=== PATIENT | female | born 1985 | race Caucasian/White ===

== ENCOUNTER → 2017-09-02 14:09 | Outpatient (CLI) | payer OTHER, SELFPAY ==
[2017-09-02 17:37] LABS: Absolute Neutrophil Count 6.8 X10^3/uL (2.0-7.7); Basophil# 0.01 X10^3/uL; Basophil% 0.1 % (0-1); Eosinophil# 0.05 X10^3/uL; Eosinophils% 0.6 % (0-5); Hematocrit 36.7 % (37-47); Hemoglobin 12.6 g/dl (12.0-15.0); Lymphocyte % 15.8 % (19-41); Mean Corp Hgb Conc 34.3 g/gl (32-36); Mean Corpuscular Hgb 31.4 pg (27.0-32.0); Mean Corpuscular Volume 91.5 fL (81-99); Mean Platelet Vol. 13.7 fl (6.2-12.0); Monocyte% 6.8 % (0-10); Neutrophil # 6.77 X10^3/uL (2.7-7.7); Neutrophil % 76.5 % (47-70); Platelet Count 165 K/mm3 (150-450); RBC Distribution Width CV 12.2 % (11.6-14.6); RBC Distribution Width SD 40.1 fl (35.1-43.9); Red Blood Count 4.01 M/mm3 (4.2-5.4); White Blood Count 8.9 K/mm3 (4.4-11.0)
[2017-09-02 18:24] LABS: POSITIVE COUNT NO; POSITIVE DIFFERENTIAL NO; POSITIVE MORPHOLOGY NO
[2017-09-03 01:13] LABS: Rapid Plasmin Reagin (RPR) NONREACTIVE (NONREACTIVE)
[2017-09-03 10:38] LABS: HIV - WCH Non-Reactive (Nonreactive); Rubella IgG 163.9 IU/mL
[2017-09-04 11:45] LABS: HEPATITIS B SURFACE AG Negative (Negative)
== END ==
PROVIDERS: Nurse Practitioner Women's Health; Visit Provider Family Medicine Geriatric Medicine
DX: Z34.80 Encounter for supervision of other normal pregnancy, unspecified trimester (principal)
CPT/HCPCS: 85025; 86592; 86703; 86762; 86850; 86900; 87340

== ENCOUNTER → 2017-09-02 18:03 | Outpatient (CLI) | payer OTHER, SELFPAY ==
[2017-09-02 21:13] LABS: Chlamydia Trachomatis by PCR Negative (Negative); Neisserai gonorrhoeae by PCR Negative (Negative); Probe Check PASS; Sample Adequacy Control PASS; Specimen Processing Control PASS
== END ==
PROVIDERS: Visit Provider Nurse Practitioner Women's Health
DX: Z34.80 Encounter for supervision of other normal pregnancy, unspecified trimester (principal)
CPT/HCPCS: 87086; 87491; 87591

== ENCOUNTER → 2017-11-08 13:01 | Outpatient (CLI) | payer OTHER, SELFPAY ==
--- NOTE | 2017-11-08 13:03 | US_ITS ---
STUDY: SECOND AND THIRD TRIMESTER OBSTETRICAL ULTRASOUND REASON FOR EXAM: Female, 31 years old. Routine survey. LMP: June 28, 2017. TECHNIQUE: Transabdominal PRIOR ULTRASOUND: None. FINDINGS: There is a single intrauterine fetus. The fetus is in a breech presentation. There is demonstrated cardiac activity with a heart rate of 160 bpm. There is a normal amniotic fluid volume. The largest amniotic fluid pocket measures 4.9 cm x 4.0 cm. The amniotic fluid index (COCO) is within normal limits. The placenta is posterior in location and is not low lying. There are Grade 0 placental changes. The cervix measures 3.8 cm in length. The bilateral adnexal regions are normal. BIOMETRY: BPD: 4.21 cm: 18 weeks, 6 days HC: 16.45 cm: 19 weeks, 2 days AC: 14.27 cm: 19 weeks, 5 days FL: 2.91 cm: 19 weeks, 0 days CI: 72% FL/BPD: 69% FL/HC: FL/AC: 20% HC/AC: 1.15 age by current US: 19 weeks, 2 days. MAE by current US: April 02, 2018. Estimated weight: 284 grams, +/- 41 grams, 62 %. Age by LMP: 19 weeks, 0 days. MAE by LMP: April 04, 2018. ANATOMY: Gender: Female Cranium: Normal lateral ventricles. Normal choroid plexus. Normal cerebellum. Normal cisterna magna. Normal face, nose and lips. Chest: Normal 4-chamber heart. Abdomen/Pelvis: Normal diaphragm. Normal stomach. Normal abdominal wall. Normal cord insertion. Normal 3 vessel cord. Normal kidneys. Normal bladder. Spine: Normal cervical spine. Normal thoracic spine. Normal lumbar spine. Normal sacrum. Extremities: Normal bilateral upper extremities. Normal bilateral lower extremities. US/OB Anatomy Scan IMPRESSION: Single live intrauterine gestation with a mean gestational age of 19 weeks and 2 days. Electronically Signed: Mychal Medley MD at 15:43 EDT Tel [phone], Service support ,
== END ==
PROVIDERS: Visit Provider Nurse Practitioner Women's Health
DX: Z34.90 Encounter for supervision of normal pregnancy, unspecified, unspecified trimester (principal)
CPT/HCPCS: 76805

== ENCOUNTER → 2017-11-26 16:46 | Outpatient (CLI) | payer OTHER, SELFPAY | PROVIDERS: Visit Provider Nurse Practitioner Women's Health | DX: R30.0 Dysuria (principal) | CPT/HCPCS: 87086; 87088 ==

== ENCOUNTER → 2017-12-22 09:15 | Outpatient (CLI) | payer OTHER, SELFPAY | PROVIDERS: Visit Provider Obstetrics & Gynecology | DX: O23.40 Unspecified infection of urinary tract in pregnancy, unspecified trimester (principal); Z3A.00 Weeks of gestation of pregnancy not specified ==

== ENCOUNTER → 2017-12-22 16:06 | Outpatient (CLI) | payer SELFPAY | PROVIDERS: Visit Provider Obstetrics & Gynecology | DX: O23.40 Unspecified infection of urinary tract in pregnancy, unspecified trimester (principal); Z3A.00 Weeks of gestation of pregnancy not specified | CPT/HCPCS: 87086 ==

== ENCOUNTER → 2018-01-12 11:54 | Outpatient (CLI) | payer OTHER, SELFPAY ==
[2018-01-12 13:43] LABS: Absolute Lymphocyte Count 1.41 X10^3/ul (0.83-4.51); Absolute Neutrophil Count 8.2 X10^3/uL (2.0-7.7); Basophil# 0.01 X10^3/uL; Basophil% 0.1 % (0-1); Eosinophil# 0.09 X10^3/uL; Eosinophils% 0.9 % (0-5); Hematocrit 33.4 % (37-47); Hemoglobin 11.1 g/dl (12.0-15.0); Lymphocyte # 1.41 X10^3/ul (4.0); Lymphocyte % 13.4 % (19-41); Mean Corp Hgb Conc 33.2 g/gl (32-36); Mean Corpuscular Hgb 31.1 pg (27.0-32.0); Mean Corpuscular Volume 93.6 fL (81-99); Mean Platelet Vol. 13.8 fl (6.2-12.0); Monocyte# 0.74 X10^3/uL; Neutrophil # 8.22 X10^3/uL (2.7-7.7); Neutrophil % 78.3 % (47-70); Platelet Count 119 K/mm3 (150-450); RBC Distribution Width CV 12.5 % (11.6-14.6); RBC Distribution Width SD 41.6 fl (35.1-43.9); Red Blood Count 3.57 M/mm3 (4.2-5.4); White Blood Count 10.5 K/mm3 (4.4-11.0)
[2018-01-12 13:53] LABS: POSITIVE COUNT NO; POSITIVE DIFFERENTIAL NO; POSITIVE MORPHOLOGY NO
[2018-01-12 14:12] LABS: Glucose Challenge Gest 1H 50g 108 mg/dL (70-140)
== END ==
PROVIDERS: Nurse Practitioner Women's Health; Visit Provider Obstetrics & Gynecology
DX: Z34.90 Encounter for supervision of normal pregnancy, unspecified, unspecified trimester (principal)
CPT/HCPCS: 36415; 82950; 85025

== ENCOUNTER → 2018-02-09 13:34 | Outpatient (CLI) | payer OTHER, SELFPAY | PROVIDERS: Referring Provider Obstetrics & Gynecology; Visit Provider Obstetrics & Gynecology | DX: N76.0 Acute vaginitis (principal) | CPT/HCPCS: 87070; 87086; 87205 ==

== ENCOUNTER → 2018-03-09 17:11 | Outpatient (CLI) | payer OTHER, SELFPAY ==
[2018-03-09 08:47] VITALS: BMI 29.7
== END ==
PROVIDERS: Referring Provider Nurse Practitioner Women's Health; Visit Provider Nurse Practitioner Women's Health
DX: Z34.90 Encounter for supervision of normal pregnancy, unspecified, unspecified trimester (principal)
CPT/HCPCS: 87081

== ENCOUNTER 2018-04-06 07:10 | Inpatient (IN) | payer OTHER, SELFPAY ==
[2018-04-04 11:16] VITALS: BMI 33.1
[2018-04-06 07:35] VITALS: BMI 29.6
[2018-04-06] MEDS: Lactated Ringers 1,000 ML 50 ML IV ×2 (07:40→14:01)
[2018-04-06] MEDS: Oxytocin 30 units/NS 500 ml 30 UNITS/500 ML IV.SOLN IV (08:00)
[2018-04-06 08:07] LABS: Hemoglobin 10.3 g/dl (12.0-15.0); Mean Corp Hgb Conc 31.2 g/gl (32-36); Mean Corpuscular Hgb 25.3 pg (27.0-32.0); Mean Corpuscular Volume 81.1 fL (81-99); Platelet Count 126 K/mm3 (150-450); RBC Distribution Width CV 15.2 % (11.6-14.6); RBC Distribution Width SD 44.7 fl (35.1-43.9); Red Blood Count 4.07 M/mm3 (4.2-5.4); White Blood Count 9.6 K/mm3 (4.4-11.0)
[2018-04-06 08:09] LABS: Scan Indicated on CBC? Y/N YES- FLAGS NOTED
[2018-04-06] MEDS: 0.9% Normal Saline 100 ML IV.SOLN. INTRA-UTER (09:30)
[2018-04-06] MEDS: fentaNYL-bupivacaine (epidural) 100 ML BAG EPIDURAL (13:30)
[2018-04-06] MEDS: Mag Hydrox/Al Hydrox/Simeth 30 ML UDC PO (13:57)
[2018-04-06] MEDS: Oxytocin 30 units/NS 500 ml 30 UNITS/500 ML IV.SOLN 334 UNITS IV (17:50)
--- NOTE | 2018-04-06 18:04 | PCM.HP.OB ---
- Problem List (1) Post-dates Status: Acute (2) Status: Chronic Qualifiers: Comment: genetic and NTD screening declined. anatomy scan normal. (3) UTI in , antepartum Status: Acute Comment: 11/26/17 Rx macrobid. 12/22/17 repeat culture negative (4) Supervision of normal Status: Acute Qualifiers: Comment: PRR MAE 04/04/18 girl PC chelsie, celia arie History Date of Admission: 04/06/18 Final MAE: 04/04/18 Gestational age: 40 Weeks and 2 Days History of this : This is a 32 year-old, , at 40 weeks gestational age presents for IOL postdates. she has had an uncomplicated Medical History: Medical History (Last Reviewed 04/04/18 @ 11:16 by Sadaf Wasserman) Anxiety F41.9 Surgical History: Surgical History (Last Reviewed 03/29/18 @ 08:44 by Sadaf Wasserman) H/O: knee surgery Z98.890 Allergies gluten Allergy (Verified 04/06/18 08:24) Diarrhea Home Medications: Home Medications vitamin,calcium,vkdaarxe-dgxx-wynok acid tablet 1 tab PO QDAY 09/02/17 Ranitidine HCl [Acid Control] 150 mg PO BID 04/06/18 Smoking Status: Never smoker Alcohol: None Number of Fetus(es): 1 Heart Tracin moderate variability reactive no decels cat I tracing TOCO Analysis: irregular History Past Pregnancies: Past Pregnancies Pregancy History 2 Elective abortions Hx Para 2 Spontaneous abortions Hx # Term Pregnancies Ectopic pregnancies Hx # Pregnancies Multiple births # of living children Past Pregnancies Del. Date Name GA/Weeks Outcome Route Bth Weight Gen Labor Lgth Anesthesia Del Locatn Provider FOB Unknown 2009 Chelsie live - full term Female epidural Fred Unknown 2011 [place] live - full term Female epidural Shayy Labs: Mom's Labs & Results 04/06/18 04/06/18 07:40 07:40 WBC 9.6 RBC 4.07 L Hgb 10.3 L Hct 33.0 L MCV 81.1 MCH 25.3 L MCHC 31.2 L RDW 15.2 H RDW Differential 44.7 H Plt Count 126 L Differential Comment COMMENT Blood Type O POSITIVE Antibody Screen NEGATIVE Course Did the patient receive Yes care? Labs Blood Type: O RH: POSITIVE RPR/VDRL/Syphilis Nonreactive Rubella status Immune HbSAg Negative Date Done: 09/02/17 Chlamydia Negative Gonorrhea Negative HIV/AIDS Non-Reactive Group B Strep: Negative Current Obstetrical History Gestational Diabetes No Incompetent Cervix No Infertility No IUGR No Macrosomia No Hypertension/Pre-eclampsia No Placenta Previa/Abruption No PTL/PROM No Uterine anomaly No Oligohydramnios No Polyhydramnios No Multiple gestation No Past Medical History Asthma Yes: seasonal, no meds Diabetes No Hypertension No Heart disease No Mitral valve prolapse No Neurologic/Seizure disorder/ No Migraines Kidney disease No Liver disease No Varicosities No Clotting disorders/Hx of DVT No Thyroid Dysfunction No Other medical diseases No Psychiatric disorders No Major trauma No Abnormal PAP smear No Sleep apnea No Mammogram in the last 2 years No Social History Marital Status: Alleged father Arie Be Hx Smoking No Smoking Status Never smoker Expected Delivery Method: Spontaneous Vaginal Describe any other labor & delivery plans:: OB Visit. MAE Calculator. Estimated Delivery Date 04/04/18. Based on LMP (certain) 06/28/17. Current WG 40w 0d. Number 1. Expected Delivery Route/Plan. . Specific Issue/Plans. flu vaccine: declines. tdap vaccine: given. rhogam: NA. LARC form signed: declines. labor support person: Arie. pain management: epidural. cut cord/dad catch: yes. : yes. PP control planned: vas planned. special requests: [] Review of Systems Constitutional: Denies: Fever, Malaise Eyes: Denies: Blurred vision, Vision Change HEENT: Denies: Head Aches, Visual Changes Cardiovascular: Denies: Chest Pain, Palpitations Respiratory: Denies: Cough, Shortness of Breath, Wheezing Gastrointestinal: Denies: Abdominal Pain, Diarrhea, Nausea, Vomiting Genitourinary: Denies: Dysuria, Hematuria Musculoskeletal: Denies: Joint Pain, Muscle pain Skin: Denies: Lesions, Rash Neurological: Denies: Blurred vision, Focal weakness, Headaches Psychiatric: Denies: Anxiety, Depression Endocrine: Denies: Heat/ Cold Intolerance Hematologic/ Lymphatic: Denies: Easy Bruising, Easy Bleeding Physical Exam General: Alert, Cooperative, No apparent distress HEENT: Atraumatic, Normocephalic. Negative for: Thyromegaly, Lymphadenopathy Cardiovascular: Regular rate Lungs: Normal air movement Abdomen: Soft, Non Tender, Gravid Neurological: Deep Tendon Reflexes 2+/4 and Symmetrical, Neuro grossly intact. Negative for: Clonus FISCAL SERVICES MANAGER: Normal external genitalia. Negative for: Vulvar lesions Estimated gestational size: Appropriate for gestational size Presentation: Cephalic Assessment/Plan All Active Problems (Last Reviewed 04/04/18 @ 11:16 by Sadaf Wasserman) Post-dates (Acute) UTI in , antepartum (Acute) Supervision of normal (Acute) This is a 32 year-old, at 40 weeks gestational age presents for IOL postdates Patient presents IOL, plan expectant management for , pitocin/AROM PRN after leigh bulb Pain management:plans epidural GBS neg Management of any complications: none I have reviewed the [facility] and made any clinically relevant updates.
--- NOTE | 2018-04-06 18:07 | HP.PCM_ITS ---
- Problem List (1) Post-dates Status: Acute (2) Status: Chronic Qualifiers: Comment: genetic and NTD screening declined. anatomy scan normal. (3) UTI in , antepartum Status: Acute Comment: 11/26/17 Rx macrobid. 12/22/17 repeat culture negative (4) Supervision of normal Status: Acute Qualifiers: Comment: PRR MAE 04/04/18 girl PC chelsie, celia arie History Date of Admission: 04/06/18 Final MAE: 04/04/18 Gestational age: 40 Weeks and 2 Days History of this : This is a 32 year-old, , at 40 weeks gestational age presents for IOL post dates. she has had an uncomplicated Medical History: Medical History (Last Reviewed 04/04/18 @ 11:16 by Sadaf Wasserman) Anxiety F41.9 Surgical History: Surgical History (Last Reviewed 03/29/18 @ 08:44 by Sadaf Wasserman) H/O: knee surgery Z98.890 Allergies gluten Allergy (Verified 04/06/18 08:24) Diarrhea Home Medications: Home Medications vitamin,calcium,vzzsdbkp-ifrl-txovy acid tablet 1 tab PO QDAY 09/02/17 Ranitidine HCl [Acid Control] 150 mg PO BID 04/06/18 Smoking Status: Never smoker Alcohol: None Number of Fetus(es): 1 Heart Tracin moderate variability reactive no decels cat I tracing TOCO Analysis: irregular History Past Pregnancies: Past Pregnancies Pregancy History 2 Elective abortions Hx Para 2 Spontaneous abortions Hx # Term Pregnancies Ectopic pregnancies Hx # Pregnancies Multiple births # of living children Past Pregnancies Del. Date Name GA/Weeks Outcome Route Bth Weight Gen Labor Lgth Anesthesia Del Locatn Provider FOB Unknown 2009 [place] live - full term Female epidural Fred Unknown 2011 [place] live - full term Female epidural Shayy Labs: Mom's Labs & Results 04/06/18 04/06/18 07:40 07:40 WBC 9.6 RBC 4.07 L Hgb 10.3 L Hct 33.0 L MCV 81.1 MCH 25.3 L MCHC 31.2 L RDW 15.2 H RDW Differential 44.7 H Plt Count 126 L Differential Comment COMMENT Blood Type O POSITIVE Antibody Screen NEGATIVE Course Did the patient receive Yes care? Labs Blood Type: O RH: POSITIVE RPR/VDRL/Syphilis Nonreactive Rubella status Immune HbSAg Negative Date Done: 09/02/17 Chlamydia Negative Gonorrhea Negative HIV/AIDS Non-Reactive Group B Strep: Negative Current Obstetrical History Gestational Diabetes No Incompetent Cervix No Infertility No IUGR No Macrosomia No Hypertension/Pre-eclampsia No Placenta Previa/Abruption No PTL/PROM No Uterine anomaly No Oligohydramnios No Polyhydramnios No Multiple gestation No Past Medical History Asthma Yes: seasonal, no meds Diabetes No Hypertension No Heart disease No Mitral valve prolapse No Neurologic/Seizure disorder/ No Migraines Kidney disease No Liver disease No Varicosities No Clotting disorders/Hx of DVT No Thyroid Dysfunction No Other medical diseases No Psychiatric disorders No Major trauma No Abnormal PAP smear No Sleep apnea No Mammogram in the last 2 years No Social History Marital Status: Alleged father Arie Be Hx Smoking No Smoking Status Never smoker Expected Delivery Method: Spontaneous Vaginal Describe any other labor & delivery plans:: OB Visit. MAE Calculator. Estimated Delivery Date 04/04/18. Based on LMP (certain) 06/28/17. Current WG 40w 0d. Number 1. Expected Delivery Route/Plan. . Specific Issue/Plans. flu vaccine: declines. tdap vaccine: given. rhogam: NA. LARC form signed: declines. labor support person: Arie. pain management: epidural. cut cord/dad catch: yes. : yes. PP control planned: vas planned. special requests: [] Review of Systems Constitutional: Denies: Fever, Malaise Eyes: Denies: Blurred vision, Vision Change HEENT: Denies: Head Aches, Visual Changes Cardiovascular: Denies: Chest Pain, Palpitations Respiratory: Denies: Cough, Shortness of Breath, Wheezing Gastrointestinal: Denies: Abdominal Pain, Diarrhea, Nausea, Vomiting Genitourinary: Denies: Dysuria, Hematuria Musculoskeletal: Denies: Joint Pain, Muscle pain Skin: Denies: Lesions, Rash Neurological: Denies: Blurred vision, Focal weakness, Headaches Psychiatric: Denies: Anxiety, Depression Endocrine: Denies: Heat/ Cold Intolerance Hematologic/ Lymphatic: Denies: Easy Bruising, Easy Bleeding Physical Exam General: Alert, Cooperative, No apparent distress HEENT: Atraumatic, Normocephalic. Negative for: Thyromegaly, Lymphadenopathy Cardiovascular: Regular rate Lungs: Normal air movement Abdomen: Soft, Non Tender, Gravid Neurological: Deep Tendon Reflexes 2+/4 and Symmetrical, Neuro grossly intact. Negative for: Clonus HEATING ELEMENT BUILDER: Normal external genitalia. Negative for: Vulvar lesions Estimated gestational size: Appropriate for gestational size Presentation: Cephalic Assessment/Plan All Active Problems (Last Reviewed 04/04/18 @ 11:16 by Sadaf Wasserman) Post-dates (Acute) UTI in , antepartum (Acute) Supervision of normal (Acute) This is a 32 year-old, at 40 weeks gestational age presents for IOL p ostdates Patient presents IOL, plan expectant management for , pitocin/AROM PRN after leigh bulb Pain management:plans epidural GBS neg Management of any complications: none I have reviewed the [facility] and made any clinically relevant updates.
--- NOTE | 2018-04-06 18:09 | OP.PCM_ITS ---
- Problem List (1) Post-dates Status: Acute (2) Status: Chronic Qualifiers: Comment: genetic and NTD screening declined. anatomy scan normal. (3) UTI in , antepartum Status: Acute Comment: 11/26/17 Rx macrobid. 12/22/17 repeat culture negative (4) Supervision of normal Status: Acute Qualifiers: Comment: PRR MAE 04/04/18 girl PC celia kang reinier Vaginal Delivery Maternal Presentation: Medically Indicated Induction iol postdates Method of Induction: Pitocin, [place] [facility] Medical Reason for Induction: Post term Amniotic Membrane Rupture Type: Artificial Amniotic Fluid Description: Clear Final MAE: 04/04/18 Gestational age: 40 Weeks and 2 Days Date of Procedure: 04/06/18 Pre-Operative Diagnosis: Induction of labor postdates Post-Operative Diagnosis: Same Surgery/ Procedure Performed: Spontaneous Vaginal Delivery Type of Anesthesia: Epidural Description of Procedure: Patient began pushing and delivered the head in the ana laura presentation. The head was delivered atraumatically . The anterior and posterior shoulders delivered without complication followed by the rest of the infant and the was p laced on the maternal abdomen. Delayed cord clamping was employed for approximately 60 seconds. Cord was clamped and cut and gentle traction was applied to the cord and the placenta delivered spontaneously immediately following it was noted to be intact with three-vessel cord. The perineum and vagina were inspected and noted to have no laceration. EBL was 100 cc. Patient and tolerated delivery well. Presentation: ANA LAURA Placental Delivery Description: Spontaneous Placenta Disposition: [facility] Cord Vessel Description: 3 Vessels Cord Entanglement: None Estimated Blood Loss: 100 Infant A gender: Female Episiotomy Description: None Laceration: None Medications given after delivery: IV Pitocin Complications: None
--- NOTE | 2018-04-06 18:10 | DCINST_ITS ---
Discharge Diet: No Restrictions Discharge Activity: Return to Normal Activity, May not drive while taking narcotic pain medications., May Shower May resume sexual activity in: 4-6 weeks Call your doctor if your incision/area has: Continuous Slow Oozing, Sudden Increased Bleeding, Increased Pain/ Swelling, Increased Redness, Foul Smelling Discharge Additional Instructions: If you experience any of the following, contact your healthcare provider. * Bleeding that soaks a pad every hour for 2 hours * Fever 100.4 or higher * Unrelieved incision or abdominal pain * Swelling, redness, discharge or bleeding from your incision or episiotomy site * Your incision begins to separate * Problems urinating (including inability to urinate or burning while urinating). * Visual changes * Severe headache * Flu-like symptoms * Pain or redness in one of both of your breasts * Pain, warmth, tenderness or swelling in your legs, especially the calf area * Frequent nausea and vomiting * Symptoms of depression or anxiety If you experience any of the following, call 911 or go to the nearest Emergency Room. * Chest pain * Problems breathing * Seizure activity * Partial or complete paralysis of a body part, slurred speech, weakness or drooping of the face, or a sudden inability to walk or hold your balance Allergies/Adverse Reactions: Allergies gluten Allergy (Verified 04/06/18 08:24) Diarrhea Medications to take at Discharge vitamin,calcium,imyodtks-aauo-isffa acid tablet 1 tab PO QDAY 09/02/17 Ranitidine HCl [Acid Control] 150 mg PO BID 04/06/18 Please Follow Up With: Melissa Bertrand MD - [phone] When: Call to make an appointment with your doctor in 6 weeks. If you had khoi vated Blood pressure or 4th degree laceration you will need to be seen in 2 weeks. Primary Care Physician: Care Physician,No Primary [Primary Care Provider] - Test Results: Test results from this visit will be discussed in further detail at your follow- up appointment, if applicable.
--- NOTE | 2018-04-06 18:10 | PCM.DCVAG ---
Discharge Diet: No Restrictions Discharge Activity: Return to Normal Activity, May not drive while taking narcotic pain medications., May Shower May resume sexual activity in: 4-6 weeks Call your doctor if your incision/area has: Continuous Slow Oozing, Sudden Increased Bleeding, Increased Pain/ Swelling, Increased Redness, Foul Smelling Discharge Additional Instructions: If you experience any of the following, contact your healthcare provider. Bleeding that soaks a pad every hour for 2 hours Fever 100.4 or higher Unrelieved incision or abdominal pain Swelling, redness, discharge or bleeding from your incision or episiotomy site Your incision begins to separate Problems urinating (including inability to urinate or burning while urinating). Visual changes Severe headache Flu-like symptoms Pain or redness in one of both of your breasts Pain, warmth, tenderness or swelling in your legs, especially the calf area Frequent nausea and vomiting Symptoms of depression or anxiety If you experience any of the following, call 911 or go to the nearest Emergency Room. Chest pain Problems breathing Seizure activity Partial or complete paralysis of a body part, slurred speech, weakness or drooping of the face, or a sudden inability to walk or hold your balance Allergies/Adverse Reactions: Allergies gluten Allergy (Verified 04/06/18 08:24) Diarrhea Medications to take at Discharge vitamin,calcium,bapjkqrv-xibg-eauof acid tablet 1 tab PO QDAY 09/02/17 Ranitidine HCl [Acid Control] 150 mg PO BID 04/06/18 Please Follow Up With: Melissa Bertrand MD - [phone] When: Call to make an appointment with your doctor in 6 weeks. If you had elevated Blood pressure or 4th degree laceration you will need to be seen in 2 weeks. Primary Care Physician: Care Physician,No Primary [Primary Care Provider] - Test Results: Test results from this visit will be discussed in further detail at your follow-up appointment, if applicable.
[2018-04-06 21:15] LABS: Hematocrit 32.6 % (37-47); Hemoglobin 10.1 g/dl (12.0-15.0); Mean Corpuscular Hgb 25.3 pg (27.0-32.0); Mean Corpuscular Volume 81.7 fL (81-99); Platelet Count 121 K/mm3 (150-450); RBC Distribution Width CV 15.2 % (11.6-14.6); RBC Distribution Width SD 45.6 fl (35.1-43.9); Red Blood Count 3.99 M/mm3 (4.2-5.4); White Blood Count 14.8 K/mm3 (4.4-11.0)
[2018-04-06 21:21] LABS: Scan Indicated on CBC? Y/N YES- FLAGS NOTED
--- NOTE | 2018-04-06 21:37 | NURSING ---
into room, notified of recent platelet count of 121. Epidural cath d/c'd by with blue tip intact. small amt of bleeding noted after epidural cath d/c'd. pressure dressing applied by . plan for RN to assess site in 1 hour and to hold off on naproxen for 6 hours.
[2018-04-06 21:41] LABS: Differential Comment SCANNED
[2018-04-06] MEDS: Famotidine 20 MG Tablet PO (21:48)
--- NOTE | 2018-04-06 21:56 | NURSING ---
This RN taking over care of pt. Report received from previous RN.
--- NOTE | 2018-04-06 23:05 | NURSING ---
Pressure dressing on epidural site assessed, drsg is clean, dry, and intact. Pt. denies any headache or dizziness. She is sitting up in bed nursing infant. Ambulated well to the restroom without complication.
[2018-04-07 00:33] VITALS: BP 111/61; PULSE 85; RESP 17; TEMP 36.8; O2SAT 97
[2018-04-07 04:26] VITALS: BP 106/53; PULSE 83; RESP 15; TEMP 37.1; O2SAT 96
--- NOTE | 2018-04-07 04:26 | NURSING ---
Pt. epidural site pressure dressing checked. Dressing clean, dry, and intact.
[2018-04-07] MEDS: Acetaminophen 500 MG Tablet 1000 MG PO ×2 (05:51→14:15)
--- NOTE | 2018-04-07 08:12 | PCM.PN.OB ---
Patient Problems: Active and Suspected Problems (Last Reviewed 04/04/18 @ 11:16 by Sadaf Wasserman) Post-dates (Acute) Subjective: No CP, SOB. Doing well - Physical Exam General: Alert, Oriented x3 Abdomen: Soft, Non Tender, - - FF below U Vital Signs Temp Pulse Resp BP Pulse Ox 98.7 F 83 15 106/53 L 96 04/07/18 04:26 04/07/18 04:26 04/07/18 04:26 04/07/18 04:26 04/07/18 04:26 Oxygen Delivery Method Room Air Weight: 172 lb 13.478 oz Body Mass Index (BMI) 29.6 Intake and Output for Last 24 Hours 04/05/18 04/06/18 04/07/18 23:59 23:59 23:59 Intake Total 2700 / 2700 Output Total 2500 / 2500 Balance 200 / 200 Laboratory Tests Past 24 Hrs 04/06/18 04/06/18 04/06/18 07:40 07:40 20:46 WBC 14.8 H RBC 3.99 L Hgb 10.1 L Hct 32.6 L MCV 81.7 MCH 25.3 L MCHC 31.0 L RDW 15.2 H RDW Differential 45.6 H Plt Count 121 L MPV TNP Differential Comment COMMENT SCANNED Blood Type O POSITIVE Antibody Screen NEGATIVE Medical Necessity - Tobacco Use Smoking Status: Never smoker Assessment/Plan All Active Problems (Last Reviewed 04/04/18 @ 11:16 by Sadaf Wasserman) Post-dates (Acute) UTI in , antepartum (Acute) Supervision of normal (Acute) PPD#1 Routine care. . Pain controlled
[2018-04-07] MEDS: Naproxen 250 MG Tablet PO (09:01)
[2018-04-07 09:43] VITALS: BP 107/57; PULSE 100; RESP 16; TEMP 36.5
[2018-04-07 12:30] VITALS: BP 109/59; PULSE 76; RESP 16; TEMP 36.6
[2018-04-07 16:20] VITALS: BP 107/65; PULSE 86; RESP 16; TEMP 36.9
--- OUTSIDE RECORDS SUMMARY | 2018-05-23 02:29 | XMS RPT_ITS ---
:1985 Author Organization OHIP Support Name Relationship Address Phone UE Unavailable Unavailable Unavailable IZABELLA REINIER Unavailable [address] + [place] [address] UE Unavailable Unavailable Unavailable IZABELLA REINIER Unavailable [address] + [place] [address] UE Unavailable Unavailable Unavailable IZABELLA REINIER Unavailable [address] + [place] [id number] [facility] Unavailable [address] + [place] [id number] IZABELLA REINIER Unavailable [address] + [place] [id number] [facility] Unavailable [address] + [place] [address] IZABELLA REINIER Unavailable [address] + [place] [address] [facility] Unavailable [address] + [place] [address] IZABELLA REINIER Unavailable [address] + [place] [address] [facility] Unavailable [address] + [place] [address] IZABELLA REINIER Unavailable [address] + [place] [address] [facility] Unavailable [address] + [place] [address] IZABELLA REINIER Unavailable [address] + [place] [id number] [facility] Unavailable [address] + [place] [id number] IZABELLA REINIER Unavailable [address] + [place] [address] [facility] Unavailable [address] + [place] [address] IZABELLA, REINIER Unavailable [address] + [place] [id number] [facility] Unavailable [address] + [place] [address] IZABELLA, REINIER Unavailable [address] + [place] [address] [facility] Unavailable [address] + [place] [address] IZABELLA, REINIER Unavailable [address] + [place] [id number] [facility] Unavailable [address] + [place] [address] IZABELLA, REINIER Unavailable [address] + [place] [id number] [facility] Unavailable [address] + [place] [address] WEIICK, REINIER Unavailable [address] + [place] [id number] [facility] Unavailable [address] + [place] [address] DAVIDICK, REINIER Unavailable [address] + [place] [address] SILVIODRICK, REINIER Unavailable Unavailable + [facility] Unavailable [address] + [place] [address] DAVIDICK, REINIER Unavailable [address] + [place] [address] [facility] Unavailable [address] + [place] [address] DAVIDICK, REINIER Unavailable [address] + [place] [id number] [facility] Unavailable [address] + [place] [address] DAVIDICK, REINIER Unavailable [address] + [place] [id number] [facility] Unavailable [address] + [place] [address] GEORGE BEPP Unavailable [address] + [address] Unavailable [address] + [place] [address] IZABELLA REINIER Unavailable [address] + [place] [id number] [facility] Unavailable [address] + [place] [id number] IZABELLA REINIER Unavailable [address] + [address] Unavailable [address] + [place] [id number] IZABELLA REINIER Unavailable [address] + [place] [id number] [facility] Unavailable [address] + [place] [id number] GEORGE BEPP Unavailable [address] + [place] [id number] [facility] Unavailable [address] + [place] [id number] GEORGE BEPP Unavailable [address] + [address] Unavailable [address] + [place] [address] GEORGE BEPP Unavailable [address] + [address] Unavailable [address] + [place] [id number] IZABELLA REINIER Unavailable [address] + [address] Unavailable . + [place] [id number] REINIER BE Unavailable [address] + [address] Unavailable Unavailable + [place] [id number] REINIER BE Unavailable [address] + [place] [address] Care Team Providers Name Role Phone Marcanthony, Melissa Admitting Unavailable Marcanthony, Melissa Attending Unavailable Marcanthony, Melissa Referring Unavailable Primay Care Physicia, No Primary Care Unavailable Tonya, Radha Attending Unavailable Omar, He Vieira Attending Unavailable Marcanthony, Melissa Admitting Unavailable Marcanthony, Melissa Attending Unavailable Marcanthony, Melissa Referring Unavailable Primay Care Physicia, No Primary Care Unavailable Marcanthony, Melissa Consulting Unavailable Marcanthony, Melissa Admitting Unavailable Tonya, Radha Attending Unavailable Marcanthony, Melissa Referring Unavailable Primay Care Physicia, No Primary Care Unavailable Marcanthony, Melissa Consulting Unavailable Tonya, Radha Attending Unavailable [place], Radha Referring Unavailable Marcanthony, Melissa Attending Unavailable Marcanthony, Melissa Attending Unavailable Marcanthony, Melissa Attending Unavailable [place], Radha Attending Unavailable Tonya, Radha Attending Unavailable [place], Radha Attending Unavailable [place], Radha Referring Unavailable Marcanthony, Melissa Attending Unavailable Marcanthony, Melissa Attending Unavailable Tonya, Radha Attending Unavailable Marcanthony, Melissa Attending Unavailable Marcanthony, Melissa Referring Unavailable Tonya, Radha Attending Unavailable [place], Radha Attending Unavailable Marcanthony, Melissa Attending Unavailable NOT, DEFINED Referring Unavailable Marcanthony, Melissa Attending Unavailable [place], Radha Attending Unavailable Marcanthony, Melissa Attending Unavailable NOT, DEFINED Referring Unavailable Marcanthony, Melissa Attending Unavailable Marcanthony, Melissa Attending Unavailable Primay Care Physicia, No Referring Unavailable Marcanthony, Melissa Attending Unavailable Marcanthony, Melissa Referring Unavailable Primay Care Physicia, No Primary Care Unavailable Marcanthony, Melissa Attending Unavailable Marcanthony, Melissa Referring Unavailable Primay Care Physicia, No Primary Care Unavailable Tonya, Radha Attending Unavailable [place], Radha Referring Unavailable Primay Care Physicia, No Primary Care Unavailable Marcanthony, Melissa Attending Unavailable Primay Care Physicia, No Referring Unavailable NewbillViraj Admitting Unavailable Newbill, Viraj Watson Attending Unavailable Marcela, Jennifer A Primary Care Unavailable Newbill, Viraj Watson Attending Unavailable Marcela, Jennifer A Primary Care Unavailable Newbill, Viraj Watson Admitting Unavailable Newbill, Viraj Watson Admitting Unavailable [place]han[place], Viraj Watson Attending Unavailable Jennifer Medrano Primary Care Unavailable PROBLEMS PROBLEMS DATE TYPE CONDITION / CODE ATTENDING STATUS SOURCE 03/29/2018 Unknown O23.40 - Marcanthony, Active [place] Unspecified [facility] infection of Hospital urinary tract in Repository , unspecified trimester / O23.40(ICD-10) 03/29/2018 Unknown Z34.83 - Encounter Marcanthony, Active [place] for supervision of [facility] other normal Hospital , third Repository trimester / Z34.83(ICD-10) 03/29/2018 Unknown Z3A.39 - 39 weeks Marcanthony, Active [facility] gestation of [facility] / Hospital Z3A.39(ICD-10) Repository 03/23/2018 Unknown Z3A.38 - 38 weeks Marcanthony, Active [place] gestation of [facility] / Hospital Z3A.38(ICD-10) Repository 03/16/2018 Unknown Z3A.37 - 37 weeks Marcanthony, Active [place] gestation of [facility] / Hospital Z3A.37(ICD-10) Repository 03/09/2018 Unknown Z34.90 - Encounter Radha Castaneda Active [place] for supervision of [facility] normal , Hospital unspecified, Repository unspecified trimester / Z34.90(ICD-10) 02/09/2018 Unknown N76.0 - Acute Marcanthony, Active [place] vaginitis / [facility] N76.0(ICD-10) Hospital Repository 02/09/2018 Unknown Z34.82 - Encounter Marcanthony, Active [place] for supervision of [facility] other normal Hospital , second Repository trimester / Z34.82(ICD-10) 02/09/2018 Unknown O36.8190 - Marcanthony, Active [place] Decreased [facility] movements, Hospital unspecified Repository trimester, not applicable or unspecified / O36.8190(ICD-10) 02/09/2018 Unknown R39.15 - Urgency Marcanthony, Active [place] of urination / [facility] R39.15(ICD-10) Hospital Repository 02/09/2018 Unknown Z3A.30 - 30 weeks Marcanthony, Active [place] gestation of [facility] / Hospital Z3A.30(ICD-10) Repository 01/26/2018 Unknown Z23 - Encounter Radha Castaneda Active [place] for immunization / [facility] Z23(ICD-10) Hospital Repository 12/24/2017 Unknown Z3A.25 - 25 weeks [place], Radha Active [place] gestation of [facility] / Hospital Z3A.25(ICD-10) Repository 12/24/2017 Unknown N94.9 - [place], Radha Active [facility] Unspecified [facility] condition Hospital associated with Repository female genital organs and menstrual cycle / N94.9(ICD-10) 11/27/2017 Unknown R30.0 - Dysuria / [place], Radha Active [facility] R30.0(ICD-10) [facility] Hospital Repository 11/26/2017 Unknown Z3A.21 - 21 weeks Tonya, Radha Active [place] gestation of [facility] / Hospital Z3A.21(ICD-10) Repository 10/29/2017 Unknown Z3A.17 - 17 weeks Marcanthony, Active [place] gestation of [facility] / Hospital Z3A.17(ICD-10) Repository 11/08/2017 Unknown Z34.80 - Encounter Radha Castaneda Active [place] for supervision of [facility] other normal Hospital , Repository unspecified trimester / Z34.80(ICD-10) PROCEDURES PROCEDURES No Procedure Records FoundRESULTS RESULTS CBC-COMPLETE BLOOD CNT Collected: 04/06/2018 Status: F Source: [place]ANNA NO DIFF 8:46 PM [facility] REPOSITORY TYPE CODE TESTS RESULT OUT OF RANGE REFERENCE UNITS LAB L100.1000 4.4-11.0 K/mm3 High 14.8 WBC LAB L100.1200 4.2-5.4 M/mm3 Low 3.99 RBC LAB L100.1300 12.0-15.0 g/dl Low 10.1 HGB LAB L100.1400 37-47 % Low 32.6 HCT LAB L100.1500 81-99 fL 81.7 Normal MCV LAB L100.1600 27.0-32.0 pg Low 25.3 MCH LAB L100.1700 32-36 g/gl Low 31.0 MCHC LAB L100.1810 11.6-14.6 % High 15.2 RDW CV LAB L100.1820 35.1-43.9 fl High 45.6 RDW SD LAB L100.1900 150-450 K/mm3 Low 121 PLT LAB L100.2000 6.2-12.0 fl Test Normal MPV not performed Performed By: #### L100.0500, L100.4500 #### [facility] [address] [place], [address] DIFFERENTIAL COMMENT Collected: 04/06/2018 Status: F Source: [place] 8:46 PM [facility] REPOSITORY TYPE CODE TESTS RESULT OUT OF RANGE REFERENCE UNITS LAB L100.4500 Normal SMEAR COMMENT SCANNED Result Comment: RARE LARGE PLATELETS NOTED PLATELET ESTIMATE SLIGHTLY DECREASED Performed By: #### L100.0500, L100.4500 #### [facility] [address] [place], [address] DISCHARGE INSTRUCTION Observed: 04/06/2018 Status: F Source: [place] 6:10 PM [facility] REPOSITORY [facility] Medical Records Department [address] [place] [address] Instructions for Home/Discharge Instructions 04/06/18 1810 MR#: [id number] Acct: [id number] Name: JEANNE BE Rep #: [id number] : 1985 32 From: Melissa Bertrand MD PCP: Care Physician, No Primary Status: ADM IN Discharge Diet: No Restrictions Discharge Activity: Return to Normal Activity, May not drive while taking narcotic pain medications., May Shower May resume sexual activity in: 4-6 weeks Call your doctor if your incision/area has: Continuous Slow Oozing, Sudden Increased Bleeding, Increased Pain/ Swelling, Increased Redness, Foul Smelling Discharge Additional Instructions: If you experience any of the following, contact your healthcare provider. * Bleeding that soaks a pad every hour for 2 hours * Fever 100.4 or higher * Unrelieved incision or abdominal pain * Swelling, redness, discharge or bleeding from your incision or episiotomy site * Your incision begins to separate * Problems urinating (including inability to urinate or burning while urinating). * Visual changes * Severe headache * Flu-like symptoms * Pain or redness in one of both of your breasts * Pain, warmth, tenderness or swelling in your legs, especially the calf area * Frequent nausea and vomiting * Symptoms of depression or anxiety If you experience any of the following, call 911 or go to the nearest Emergency Room. * Chest pain * Problems breathing * Seizure activity * Partial or complete paralysis of a body part, slurred speech, weakness or drooping of the face, or a sudden inability to walk or hold your balance Allergies/Adverse Reactions: Allergies gluten Allergy (Verified 04/06/18 08:24) Diarrhea Medications to take at Discharge vitamin,calcium,gfnnopbr-xrbe-rhfmb acid tablet 1 tab PO QDAY 09/02/17 Ranitidine HCl [Acid Control] 150 mg PO BID 04/06/18 Please Follow Up With: Melissa Bertrand MD - [phone] When: Call to make an appointment with your doctor in 6 weeks. If you had elevated Blood pressure or 4th degree laceration you will need to be seen in 2 weeks. Primary Care Physician: Care Physician,No Primary [Primary Care Provider] - Test Results: Test results from this visit will be discussed in further detail at your follow-up appointment, if applicable. 04/06/18 1810 <Electronically signed by Melissa Bertrand MD> Date Melissa Bertrand MD CC: No Primary Care Physician OPERATIVE REPORT Observed: 04/06/2018 Status: F Source: [place] 6:09 PM [facility] REPOSITORY [facility] Medical Records Department [address] [place] [address] Operative Report 04/06/18 1807 MR#: [id number] Acct: [id number] Name: DAVIDHILARYJEANNE R Rep #: [id number] : 1985 32 From: Melissa Bertrand MD PCP: Care Physician, No Primary Status: ADM IN Y Location: [id number] - Problem List (1) Post-dates Status: Acute (2) Status: Chronic Qualifiers: Comment: genetic and NTD screening declined. anatomy scan normal. (3) UTI in , antepartum Status: Acute Comment: 11/26/17 Rx macrobid. 12/22/17 repeat culture negative (4) Supervision of normal Status: Acute Qualifiers: Comment: PRR MAE 04/04/18 girl PC celia kang reinier Vaginal Delivery Maternal Presentation: Medically Indicated Induction iol postdates Method of Induction: Pitocin, Leigh Bul[facility] Medical Reason for Induction: Post term Amniotic Membrane Rupture Type: Artificial Amniotic Fluid Description: Clear Final MAE: 04/04/18 Gestational age: 40 Weeks and 2 Days Date of Procedure: 04/06/18 Pre-Operative Diagnosis: Induction of labor postdates Post-Operative Diagnosis: Same Surgery/ Procedure Performed: Spontaneous Vaginal Delivery Type of Anesthesia: Epidural Description of Procedure: Patient began pushing and delivered the head in the ana laura presentation. The head was delivered atraumatically . The anterior and posterior shoulders delivered without complication followed by the rest of the and the infant was placed on the maternal abdomen. Delayed cord clamping was employed for approximately 60 seconds. Cord was clamped and cut and gentle traction was applied to the cord and the placenta delivered spontaneously immediately following it was noted to be intact with three-vessel cord. The perineum and vagina were inspected and noted to have no laceration. EBL was 100 cc. Patient and tolerated delivery well. Presentation: ANA LAURA Placental Delivery Description: Spontaneous Placenta Disposition: [facility] Cord Vessel Description: 3 Vessels Cord Entanglement: None Estimated Blood Loss: 100 Infant A gender: Female Episiotomy Description: None Laceration: None Medications given after delivery: IV Pitocin Complications: None 04/06/181808 <Electronically signed by Melissa Bertrand MD> Date Melissa Bertrand MD CC: No Primary Care Physician; Melissa Bertrand MD Signed HISTORY AND PHYSICAL Observed: 04/06/2018 Status: F Source: UKIAH EXAM 6:07 PM [facility] REPOSITORY [facility] Medical Records Department [address] [place] [address] History and Physical 04/06/181803 MR#: [id number] Acct: [id number] Name: JEANNE BE Rep #: [id number] : 1985 32 From: Melissa Bertrand MD PCP: Care Physician, No Primary Status: ADM IN Location: [id number] - Problem List (1) Post-dates Status: Acute (2) Status: Chronic Qualifiers: Comment: genetic and NTD screening declined. anatomy scan normal. (3) UTI in , antepartum Status: Acute Comment: 11/26/17 Rx macrobid. 12/22/17 repeat culture negative (4) Supervision of normal Status: Acute Qualifiers: Comment: PRR MAE 04/04/18 girl PC jorge luis, celia reinier History Date of Admission: 04/06/18 Final MAE: 04/04/18 Gestational age: 40 Weeks and 2 Days History of this : This is a 32 year-old, , at 40 weeks gestational age presents for IOL postdates. she has had an uncomplicated Medical History: Medical History (Last Reviewed 04/04/18 @ 11:16 by Sadaf Wasserman) Anxiety F41.9 Surgical History: Surgical History (Last Reviewed 03/29/18 @ 08:44 by Sadaf Wasserman) H/O: knee surgery Z98.890 Allergies gluten Allergy (Verified 04/06/18 08:24) Diarrhea Home Medications: Home Medications vitamin,calcium,lrvfpbuj-eppy-ivvnl acid tablet 1 tab PO QDAY 09/02/17 Ranitidine HCl [Acid Control] 150 mg PO BID 04/06/18 Smoking Status: Never smoker Alcohol: None Number of Fetus(es): 1 Heart Tracin moderate variability reactive no decels cat I tracing TOCO Analysis: irregular History Past Pregnancies: Past Pregnancies 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 DateName GA/Weeks Outcome Route Bt WeighInfant GeLabor LgtAnesthesiDel LocatProvider FOB t n h a n Labs: Mom's Labs AND Results WBC 9.6 RBC 4.07 L Hgb 10.3 L Hct 33.0 L Course Did the patient receive Yes care? Labs Blood Type: O Current Obstetrical History Gestational Diabetes No Incompetent Cervix No Infertility No IUGR No Macrosomia No Hypertension/Pre-eclampsia No Placenta Previa/Abruption No PTL/PROM No Uterine anomaly No Oligohydramnios No Polyhydramnios No Multiple gestation No Past Medical History Asthma Yes: seasonal, no meds Diabetes No Hypertension No Heart disease No Mitral valve prolapse No Neurologic/Seizure disorder/ No Migraines Kidney disease No Liver disease No Varicosities No Clotting disorders/Hx of DVT No Thyroid Dysfunction No Other medical diseases No Psychiatric disorders No Major trauma No Abnormal PAP smear No Sleep apnea No Mammogram in the last 2 years No Social History Marital Status: Alleged father Reinier Be Hx Smoking No Smoking Status Never smoker Expected Delivery Method: Spontaneous Vaginal Describe any other labor AND delivery plans:: OB Visit. MAE Calculator. Estimated Delivery Date 04/04/18. Based on LMP (certain) 06/28/17. Current WG 40w 0d. Number 1. Expected Delivery Route/Plan. . Specific Issue/Plans. flu vaccine: declines. tdap vaccine: given. rhogam: NA. LARC form signed: declines. labor support person: Reinier. pain management: epidural. cut cord/dad catch: yes. : yes. PP control planned: vas planned. special requests: [] Review of Systems Constitutional: Denies: Fever, Malaise Eyes: Denies: Blurred vision, Vision Change HEENT: Denies: Head Aches, Visual Changes Cardiovascular: Denies: Chest Pain, Palpitations Respiratory: Denies: Cough, Shortness of Breath, Wheezing Gastrointestinal: Denies: Abdominal Pain, Diarrhea, Nausea, Vomiting Genitourinary: Denies: Dysuria, Hematuria Musculoskeletal: Denies: Joint Pain, Muscle pain Skin: Denies: Lesions, Rash Neurological: Denies: Blurred vision, Focal weakness, Headaches Psychiatric: Denies: Anxiety, Depression Endocrine: Denies: Heat/ Cold Intolerance Hematologic/ Lymphatic: Denies: Easy Bruising, Easy Bleeding Physical Exam General: Alert, Cooperative, No apparent distress HEENT: Atraumatic, Normocephalic. Negative for: Thyromegaly, Lymphadenopathy Cardiovascular: Regular rate Lungs: Normal air movement Abdomen: Soft, Non Tender, Gravid Neurological: Deep Tendon Reflexes 2+/4 and Symmetrical, Neuro grossly intact. Negative for: Clonus NUT FORMER: Normal external genitalia. Negative for: Vulvar lesions Estimated gestational size: Appropriate for gestational size Presentation: Cephalic Assessment/Plan All Active Problems (Last Reviewed 04/04/18 @ 11:16 by Sadaf Wasserman) Post-dates (Acute) UTI in , antepartum (Acute) Supervision of normal (Acute) This is a 32 year-old, at 40 weeks gestational age presents for IOL postdates Patient presents IOL, plan expectant management for , pitocin/AROM PRN after leigh bulb Pain management:plans epidural GBS neg Management of any complications: none I have reviewed the ON LICENSE OF [facility] and made any clinically relevant updates. 04/06/181806 <Electronically signed by Melissa Bertrand MD> Date Melissa Bertrand MD Cosigner Signature: Date (if applicable) CC: No Primary Care Physician; Melissa Bertrand MD Signed CBC-COMPLETE BLOOD CNT Collected: 04/06/2018 Status: F Source: JANNA NO DIFF 7:40 AM [facility] REPOSITORY TYPE CODE TESTS RESULT OUT OF RANGE REFERENCE UNITS LAB L100.1000 4.4-11.0 K/mm3 Normal WBC 9.6 LAB L100.1200 4.2-5.4 M/mm3 Low RBC 4.07 LAB L100.1300 12.0-15.0 g/dl Low HGB 10.3 LAB L100.1400 37-47 % Low HCT 33.0 LAB L100.1500 81-99 fL Normal MCV 81.1 LAB L100.1600 27.0-32.0 pg Low MCH 25.3 LAB L100.1700 32-36 g/gl Low MCHC 31.2 LAB L100.1810 11.6-14.6 % High RDW CV 15.2 LAB L100.1820 35.1-43.9 fl High RDW SD 44.7 LAB L100.1900 150-450 K/mm3 Low PLT 126 Performed By: #### L100.0500, L100.4500 #### [facility] [address] [place], [address] DIFFERENTIAL COMMENT Collected: 04/06/2018 Status: F Source: JANNA 7:40 AM [facility] REPOSITORY TYPE CODE TESTS RESULT OUT OF RANGE REFERENCE UNITS LAB L100.4500 Normal SMEAR COMMENT COMMENT Result Comment: SLIDE SCANNED - 1+ LARGE PLTS. Performed By: #### L100.0500, L100.4500 #### [facility] [address] [place], [address] TYPE AND SCREEN Collected: 04/06/2018 Status: F Source: [place] 7:40 AM [facility] REPOSITORY Order Comment: Reason for Type AND Screen/Red Cells: ROUTINE TYPE CODE TESTS RESULT OUT OF RANGE REFERENCE UNITS LAB B10.0800 O Normal BLOOD TYPE GEL POSITIVE LAB B100.4000 Normal Antibody NEGATIVE Screen Performed By: #### B101.7450 #### [facility] [address] 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 Is patient in pain?: No Allergies No Known Allergies Allergy (Verified 04/04/18 11:16) Medications vitamin,calcium,xjkszkox-hkpl-uiibk acid tablet 1 tab PO QDAY 09/02/17 [History Confirmed 04/04/18] ranitidine 150 mg tablet 150 mg PO BID #60 tab 10/29/17 [Rx Confirmed 04/04/18] Last Menstral Period: 06/28/17 Zika: Zika virus screening: Negative : No PFSH PFSH Medical History Anxiety (Acute) Surgical History H/O: knee surgery (Acute) Family History Father Cancer lung- Smoker Grandmother CVA (cerebral vascular accident) Social History Smoking Status: Never smoker alcohol intake: never substance use type: does not use caffeine: Yes what type of physical activity do you participate in: walking seatbelt use: always do you feel safe at home: Yes 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 DateName GA/Weeks Outcome Route Bth WeighInfant GeLabor LgtAnesthesiDel LocatProvider FOB t n h a n HPI 40 WEEK OB: Details: JEANNE BE is a 32 year old who presents for routine OB visit. OB Visit MAE Calculator Estimated Delivery Date 04/04/18 Based on LMP (certain) 06/28/17 Current WG 40w 0d Number 1 Expected Delivery Route/Plan Specific Issue/Plans flu vaccine: declines tdap vaccine: given rhogam: NA LARC form signed: declines labor support person: Reinier pain management: epidural cut cord/dad catch: yes : yes PP control planned: vas planned special requests: [] Initial Weight: Not Recorded Date Weight BP Urine PFHR FuHt Pres MCTX DilatioFetal SVisit NProvideComment rot ov n t ote r s EGA Ef Gluco faced se 10/30/1139 lb 106/68 Negativ co hear 8 4 oz e tburn-w 17 ill sta w 4d Negati rt zant ve ac Visit Notes Visit Date: 04/04/18 no vb lof good fm no regular ctx plan IOL wednesday. membranes swept Melissa Bertrand MD on 04/04/18 Visit Date: 03/29/18 no vb lof good fm no regular ctx Melissa Bertrand MD on 03/29/18 Visit Date: 03/23/18 no vb lof good fm no regular ctx Melissa Bertrand MD on 03/23/18 Visit Date: 03/16/18 co significant reflux n ovb lof good fm no regular ctx Melissa Bertrand MD on 03/16/18 Visit Date: 03/09/18 Doing well. No VB, LOF. No CTX. 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 recommend being on FMLA starting now unti ldelivery and recovery Melissa Bertrand MD on 02/09/18 co irregular contractions, no vb lof decreased movement Melissa Bertrand MD on 02/09/18 Visit Date: 01/26/18 Doing well. No VB, LOF. Good FM ROBERTA Quiroga on 01/26/18 Visit Date: 01/12/18 continues low pelvic pain-saw chiropractor and has tape to support low abdomen. No VB, LOF. Good FM ROBERTA Quiroga on 01/12/18 Visit Date: 12/24/17 Work in for earlier today pain left mid abdomen and decreased movement. States now baby active and no longer having pain. Denies VB, LOF, CTX. Brief US confirms active fetus. FHT 148 ROBERTA Quiroga on 12/24/17 Visit Date: 12/22/17 no vb lof good fm no regular ctx Melissa Bertrand MD on 12/29/17 Visit Date: 11/26/17 Dysuria worsening last 3 days with blood in urine. No VB, LOF ROBERTA Quiroga on 11/26/17 Visit Date: 10/29/17 co heartburn-will start zantac Melissa Bertrand MD on 10/29/17 ACOG First Trimester First Trimester: Desire for , Anticipated Course of Care, Use of Any medications, Sexual activity, Exercise, Dental Care, Sauna/Hot tub use, Seat Belt use, Childbirth classes/Hospital facilities, , Travel, Indications for US and Screening for Aneuploidy; discussed Alcohol, discussed Tobacco Cessation, discussed Illicit/Recreational Drug/Substance Use, discussed Intimate Partner Violence, discussed Barriers to care, discussed Unstable Housing, discussed Communication Barriers, discussed Environmental/Work Hazards or discussed Toxoplasmosis [facility] Labs Hct 33.4 % (37-47) L 01/12/18 Hgb 11.1 g/dl (12.0-15.0) L 01/12/18 Glucose 1 Hr 50 gm 108 mg/dL (70-140) 01/12/18 Details: HIV: Urine Culture: Sequential Screen: NIPT Screen: Results [id number] Office Urine Glucose Negative Last Edit by Sadaf Wasserman on 04/04/18 11:17 Office Urine Protein Negative Last Edit by Sadaf Wasserman on 04/04/18 11:17 Assessment AND Plan Problems 1. 40 weeks gestation of Z3A.40 genetic and NTD screening declined. anatomy scan normal. 2. UTI in , antepartum O23.40 11/26/17 Rx macrobid. 12/22/17 repeat culture negative 3. Encounter for supervision of other normal in third trimester Z34.83 PRR MAE 04/04/18 girl celia Baez reinier Plan movement and labor precautions reviewed. ACOG trimester education reviewed and updated. see problem list details for updated plan management information and see below for orders placed at this visit. [place] appropriate handout given. Orders Orders: Coding Level of Care Code OB Routine Diagnoses 40 weeks gestation of Z3A.40 Weeks of gestation: 40 weeks UTI in , antepartum O23.40 Encounter for supervision of other normal in third trimester Z34.83 Normal : other normal Trimester: third trimester 04/04/18 1201 <Electronically signed by Melissa Bertrand MD> Date Melissa Bertrand MD Cosigner Signature: Date (if applicable) CC: SHOW DOG TRAINER OFFICE VISIT Observed: 03/29/2018 Status: F Source: JANNA REPORT 9:10 AM [facility] 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 Is patient in pain?: No Allergies No Known Allergies Allergy (Verified 03/29/18 08:40) Medications vitamin,calcium,ymzhkzhh-dnpj-qliof acid tablet 1 tab PO QDAY 09/02/17 [History Confirmed 03/29/18] ranitidine 150 mg tablet 150 mg PO BID #60 tab 10/29/17 [Rx Confirmed 03/29/18] Last Menstral Period: 06/28/17 Zika: Zika virus screening: Negative : No PFSH PFSH Medical History Anxiety (Acute) Surgical History H/O: knee surgery (Acute) Family History Father Cancer lung- Smoker Grandmother CVA (cerebral vascular accident) Social History Smoking Status: Never smoker alcohol intake: never substance use type: does not use caffeine: Yes what type of physical activity do you participate in: walking seatbelt use: always do you feel safe at home: Yes 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 DateName GA/Weeks Outcome Route Bth WeighInfant GeLabor LgtAnesthesiDel LocatProvider FOB t n h a n HPI 39 WEEK OB: Details: JEANNE BE is a 32 year old who presents for routine OB visit. OB Visit MAE Calculator Estimated Delivery Date 04/04/18 Based on LMP (certain) 06/28/17 Current WG 39w 1d Number 1 Expected Delivery Route/Plan Specific Issue/Plans flu vaccine: declines tdap vaccine: given rhogam: NA LARC form signed: declines labor support person: Reinier pain management: epidural cut cord/dad catch: yes : yes PP control planned: vas planned special requests: [] Initial Weight: Not Recorded Date Weight BP Urine PFHR FuHt Pres MCTX DilatioFetal SVisit NProvideComment rot ov n t ote r s EGA Ef Gluco faced se 10/30/1139 lb 106/68 Negativ co hear 8 4 oz e tburn-w 17 ill sta w 4d Negati rt zant ve ac Visit Notes Visit Date: 03/29/18 no vb lof good fm no regular ctx Melissa Bertrand MD on 03/29/18 Visit Date: 03/23/18 no vb lof good fm no regular ctx Melissa Bertrand MD on 03/23/18 Visit Date: 03/16/18 co significant reflux n ovb lof good fm no regular ctx Melissa Bertrand MD on 03/16/18 Visit Date: 03/09/18 Doing well. No VB, LOF. No CTX. 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 recommend being on FMLA starting now unti ldelivery and recovery Melissa Bertrand MD on 02/09/18 co irregular contractions, no vb lof decreased movement Melissa Bertrand MD on 02/09/18 Visit Date: 01/26/18 Doing well. No VB, LOF. Good FM ROBERTA Quiroga on 01/26/18 Visit Date: 01/12/18 continues low pelvic pain-saw chiropractor and has tape to support low abdomen. No VB, LOF. Good FM ROBERTA Quiroga on 01/12/18 Visit Date: 12/24/17 Work in for earlier today pain left mid abdomen and decreased movement. States now baby active and no longer having pain. Denies VB, LOF, CTX. Brief US confirms active fetus. FHT 148 ROBERTA Quiroga on 12/24/17 Visit Date: 12/22/17 no vb lof good fm no regular ctx Melissa Bertrand MD on 12/29/17 Visit Date: 11/26/17 Dysuria worsening last 3 days with blood in urine. No VB, LOF ROBERTA Quiroga on 11/26/17 Visit Date: 10/29/17 co heartburn-will start zantac Melissa Bertrand MD on 10/29/17 ACOG First Trimester First Trimester: Desire for , Anticipated Course of Care, Use of Any medications, Sexual activity, Exercise, Dental Care, Sauna/Hot tub use, Seat Belt use, Childbirth classes/Hospital facilities, , Travel, Indications for US and Screening for Aneuploidy; discussed Alcohol, discussed Tobacco Cessation, discussed Illicit/Recreational Drug/Substance Use, discussed Intimate Partner Violence, discussed Barriers to care, discussed Unstable Housing, discussed Communication Barriers, discussed Environmental/Work Hazards or discussed Toxoplasmosis [facility] Labs Hct 33.4 % (37-47) L 01/12/18 Hgb 11.1 g/dl (12.0-15.0) L 01/12/18 Glucose 1 Hr 50 gm 108 mg/dL (70-140) 01/12/18 Details: HIV: Urine Culture: Sequential Screen: NIPT Screen: Results [id number] Office Urine Glucose Negative Last Edit by Sadaf Wasserman on 03/29/18 08:46 Office Urine Protein Negative Last Edit by Sadaf Wasserman on 03/29/18 08:46 Assessment AND Plan Problems 1. UTI in , antepartum O23.40 11/26/17 Rx macrobid. 12/22/17 repeat culture negative 2. 39 weeks gestation of Z3A.39 genetic and NTD screening declined. anatomy scan normal. 3. Encounter for supervision of other normal in third trimester Z34.83 PRR MAE 04/04/18 girl PC celia kang reinier Plan movement and labor precautions reviewed. ACOG trimester education reviewed and updated. see problem list details for updated plan management information and see below for orders placed at this visit. [place] appropriate handout given. Orders Orders: Coding Level of Care Code OB Routine Diagnoses UTI in , antepartum O23.40 39 weeks gestation of Z3A.39 Weeks of gestation: 39 weeks Encounter for supervision of other normal in third trimester Z34.83 Normal : other normal Trimester: third trimester 03/29/18 0910 <Electronically signed by Melissa Bertrand MD> Date Melissa Bertrand MD Cosigner Signature: Date (if applicable) CC: SHOW DOG TRAINER OFFICE VISIT Observed: 03/23/2018 Status: F Source: JANNA REPORT 9:03 AM [facility] [address] [place] [address] OFFICE VISIT Date of Service: 03/23/18 MR#: [id number] Acct: [id number] Name: SILVIOHILARYJEANNE R Rep #: [id number] : 1985 Provider: Melissa Bertrand MD Age/Sex: 32/F Location[place] [facility] [place] Status: Signed Intake Vital Signs03/23/18 Body Mass Index (BMI) 33.1 03/23/18 Height 5 ft 1 in 03/23/18 Weight: 175 lb 03/23/18 Body Mass Index (BMI) 33.0 03/23/18 Blood Pressure 100/68 Intake Visit Reasons: 38 WEEK OB 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 Is patient in pain?: No Allergies No Known Allergies Allergy (Verified 03/23/18 08:39) Medications calcium carbonate 200 mg calcium (500 mg) chewable tablet 200 mg PO TID tab 09/02/17 [History Confirmed 03/23/18] doxylamine succinate 25 mg tablet 25 mg PO QHS PRN 09/02/17 [History Confirmed 03/23/18] vitamin,calcium,jwoyjyui-bhso-uazay acid tablet 1 tab PO QDAY 09/02/17 [History Confirmed 03/23/18] promethazine 12.5 mg tablet 12.5 mg PO Q6H PRN #60 tab 09/02/17 [Rx Confirmed 03/23/18] ondansetron HCl 4 mg tablet 4 mg PO Q6H PRN #20 tab 09/09/17 [Rx Confirmed 03/23/18] metoclopramide 10 mg tablet 10 mg PO TID PRN #90 tab 09/24/17 [Rx Confirmed 03/23/18] ranitidine 150 mg tablet 150 mg PO BID #60 tab 10/29/17 [Rx Confirmed 03/23/18] Last Menstral Period: 06/28/17 Zika: Zika virus screening: Negative : No PFSH PFSH Medical History Anxiety (Acute) Surgical History H/O: knee surgery (Acute) Family History Father Cancer lung- Smoker Grandmother CVA (cerebral vascular accident) Social History Smoking Status: Never smoker alcohol intake: never substance use type: does not use caffeine: Yes what type of physical activity do you participate in: walking seatbelt use: always do you feel safe at home: Yes 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 DateName GA/Weeks Outcome Route Bth WeighInfant GeLabor LgtAnesthesiDel LocatProvider FOB t n h a n HPI 38 WEEK OB: Details: JEANNE BE is a 32 year old who presents for routine OB visit. OB Visit MAE Calculator Estimated Delivery Date 04/04/18 Based on LMP (certain) 06/28/17 Current WG 38w 2d Number 1 Expected Delivery Route/Plan Specific Issue/Plans flu vaccine: declines tdap vaccine: given rhogam: NA LARC form signed: declines labor support person: Reinier pain management: epidural cut cord/dad catch: yes : yes PP control planned: vas planned special requests: [] Initial Weight: Not Recorded Date Weight BP Urine PrFHR FuHt Pres MoCTX DilationFetal StVisit NoProviderComments E ot v te GA G Effac lucose ed Visit Notes Visit Date: 03/23/18 no vb lof good fm no regular ctx Melissa Bertrand MD on 03/23/18 Visit Date: 03/16/18 co significant reflux n ovb lof good fm no regular ctx Melissa Bertrand MD on 03/16/18 Visit Date: 03/09/18 Doing well. No VB, LOF. No CTX. 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 recommend being on FMLA starting now unti ldelivery and recovery Melissa Bertrand MD on 02/09/18 co irregular contractions, no vb lof decreased movement Melissa Bertrand MD on 02/09/18 Visit Date: 01/26/18 Doing well. No VB, LOF. Good FM ROBERTA Quiroga on 01/26/18 Visit Date: 01/12/18 continues low pelvic pain-saw chiropractor and has tape to support low abdomen. No VB, LOF. Good FM ROBERTA Quiroga on 01/12/18 Visit Date: 12/24/17 Work in for earlier today pain left mid abdomen and decreased movement. States now baby active and no longer having pain. Denies VB, LOF, CTX. Brief US confirms active fetus. FHT 148 ROBERTA Quiroga on 12/24/17 Visit Date: 12/22/17 no vb lof good fm no regular ctx Melissa Bertrand MD on 12/29/17 Visit Date: 11/26/17 Dysuria worsening last 3 days with blood in urine. No VB, LOF ROBERTA Quiroga on 11/26/17 Visit Date: 10/29/17 co heartburn-will start zantac Melissa Bertrand MD on 10/29/17 ACOG First Trimester First Trimester: Desire for , Anticipated Course of Care, Use of Any medications, Sexual activity, Exercise, Dental Care, Sauna/Hot tub use, Seat Belt use, Childbirth classes/Hospital facilities, , Travel, Indications for US and Screening for Aneuploidy; discussed Alcohol, discussed Tobacco Cessation, discussed Illicit/Recreational Drug/Substance Use, discussed Intimate Partner Violence, discussed Barriers to care, discussed Unstable Housing, discussed Communication Barriers, discussed Environmental/Work Hazards or discussed Toxoplasmosis [facility] Labs Hct 33.4 % (37-47) L 01/12/18 Hgb 11.1 g/dl (12.0-15.0) L 01/12/18 Glucose 1 Hr 50 gm 108 mg/dL (70-140) 01/12/18 Details: HIV: Urine Culture: Sequential Screen: NIPT Screen: Results [id number] Office Urine Glucose Negative Last Edit by Sadaf Wasserman on 03/23/18 08:40 Office Urine Protein Negative Last Edit by Sadaf Wasserman on 03/23/18 08:40 Assessment AND Plan Problems 1. UTI in , antepartum O23.40 11/26/17 Rx macrobid. 12/22/17 repeat culture negative 2. 38 weeks gestation of Z3A.38 genetic and NTD screening declined. anatomy scan normal. 3. Encounter for supervision of other normal in third trimester Z34.83 PRR MAE 04/04/18 girl PC celia kang reinier Plan movement and labor precautions reviewed. ACOG trimester education reviewed and updated. see problem list details for updated plan management information and see below for orders placed at this visit. [place] appropriate handout given. Orders Orders: Coding Level of Care Code OB Routine Diagnoses UTI in , antepartum O23.40 38 weeks gestation of Z3A.38 Weeks of gestation: 38 weeks Encounter for supervision of other normal in third trimester Z34.83 Normal : other normal Trimester: third trimester 03/23/18 0903 <Electronically signed by Melissa Bertrand MD> Date Melissa Bertrand MD [facility] Signature: Date (if applicable) CC: SHOW DOG TRAINER OFFICE VISIT Observed: 03/16/2018 Status: F Source: JANNA REPORT 8:56 AM [facility] 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 Is patient in pain?: No Allergies No Known Allergies Allergy (Verified 03/16/18 08:32) Medications calcium carbonate 200 mg calcium (500 mg) chewable tablet 200 mg PO TID tab 09/02/17 [History Confirmed 03/16/18] doxylamine succinate 25 mg tablet 25 mg PO QHS PRN 09/02/17 [History Confirmed 03/16/18] vitamin,calcium,eqfmonwt-vari-mkmio acid tablet 1 tab PO QDAY 09/02/17 [History Confirmed 03/16/18] promethazine 12.5 mg tablet 12.5 mg PO Q6H PRN #60 tab 09/02/17 [Rx Confirmed 03/16/18] ondansetron HCl 4 mg tablet 4 mg PO Q6H PRN #20 tab 09/09/17 [Rx Confirmed 03/16/18] metoclopramide 10 mg tablet 10 mg PO TID PRN #90 tab 09/24/17 [Rx Confirmed 03/16/18] ranitidine 150 mg tablet 150 mg PO BID #60 tab 10/29/17 [Rx Confirmed 03/16/18] Last Menstral Period: 06/28/17 Zika: Zika virus screening: Negative : No PFSH PFSH Medical History Anxiety (Acute) Surgical History H/O: knee surgery (Acute) Family History Father Cancer lung- Smoker Grandmother CVA (cerebral vascular accident) Social History Smoking Status: Never smoker alcohol intake: never substance use type: does not use caffeine: Yes what type of physical activity do you participate in: walking seatbelt use: always do you feel safe at home: Yes 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 DateName GA/Weeks Outcome Route Bth WeighInfant GeLabor LgtAnesthesiDel LocatProvider FOB t n h a n HPI 37 WEEK OB: Details: JEANNE BE is a 32 year old who presents for routine OB visit. OB Visit MAE Calculator Estimated Delivery Date 04/04/18 Based on LMP (certain) 06/28/17 Current WG 37w 2d Number 1 Expected Delivery Route/Plan Specific Issue/Plans flu vaccine: declines tdap vaccine: given rhogam: NA LARC form signed: declines labor support person: Reinier pain management: epidural cut cord/dad catch: yes : yes PP control planned: vas planned special requests: [] Initial Weight: Not Recorded Date Weight BP Urine PrFHR FuHt Pres MoCTX DilationFetal StVisit NoProviderComments E ot v te GA G Effac lucose ed Visit Notes Visit Date: 03/16/18 co significant reflux n ovb lof good fm no regular ctx Melissa Bertrand MD on 03/16/18 Visit Date: 03/09/18 Doing well. No VB, LOF. No CTX. 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 recommend being on FMLA starting now unti ldelivery and recovery Melissa Bertrand MD on 02/09/18 co irregular contractions, no vb lof decreased movement Melissa Bertrand MD on 02/09/18 Visit Date: 01/26/18 Doing well. No VB, LOF. Good FM ROBERTA Quiroga on 01/26/18 Visit Date: 01/12/18 continues low pelvic pain-saw chiropractor and has tape to support low abdomen. No VB, LOF. Good FM ROBERTA Quiroga on 01/12/18 Visit Date: 12/24/17 Work in for earlier today pain left mid abdomen and decreased movement. States now baby active and no longer having pain. Denies VB, LOF, CTX. Brief US confirms active fetus. FHT 148 ROBERTA Quiroga on 12/24/17 Visit Date: 12/22/17 no vb lof good fm no regular ctx Melissa Bertrand MD on 12/29/17 Visit Date: 11/26/17 Dysuria worsening last 3 days with blood in urine. No VB, LOF ROBERTA Quiroga on 11/26/17 Visit Date: 10/29/17 co heartburn-will start zantac Melissa Bertrand MD on 10/29/17 ACOG First Trimester First Trimester: Desire for , Anticipated Course of Care, Use of Any medications, Sexual activity, Exercise, Dental Care, Sauna/Hot tub use, Seat Belt use, Childbirth classes/Hospital facilities, , Travel, Indications for US and Screening for Aneuploidy; discussed Alcohol, discussed Tobacco Cessation, discussed Illicit/Recreational Drug/Substance Use, discussed Intimate Partner Violence, discussed Barriers to care, discussed Unstable Housing, discussed Communication Barriers, discussed Environmental/Work Hazards or discussed Toxoplasmosis [facility] Labs Hct 33.4 % (37-47) L 01/12/18 Hgb 11.1 g/dl (12.0-15.0) L 01/12/18 Glucose 1 Hr 50 gm 108 mg/dL (70-140) 01/12/18 Details: HIV: Urine Culture: Sequential Screen: NIPT Screen: Results [id number] Office Urine Glucose Negative Last Edit by Sadaf Wasserman on 03/16/18 08:37 Office Urine Protein Negative Last Edit by Sadaf Wasserman on 03/16/18 08:37 Assessment AND Plan Problems 1. UTI in , antepartum O23.40 11/26/17 Rx macrobid. 12/22/17 repeat culture negative 2. 37 weeks gestation of Z3A.37 genetic and NTD screening declined. anatomy scan normal. 3. Encounter for supervision of other normal in third trimester Z34.83 PRR MAE 04/04/18 girl PC celia kang reinier Plan movement and labor precautions reviewed. ACOG trimester education reviewed and updated. see problem list details for updated plan management information and see below for orders placed at this visit. [place] appropriate handout given. Orders Orders: Coding Level of Care Code OB Routine Diagnoses UTI in , antepartum O23.40 37 weeks gestation of Z3A.37 Weeks of gestation: 37 weeks Encounter for supervision of other normal in third trimester Z34.83 Normal : other normal Trimester: third trimester 03/16/18 0856 <Electronically signed by Melissa Bertrand MD> Date Melissa Bertrand MD Cosigner Signature: Date (if applicable) CC: Observed: 03/09/2018 Status: F Source: [place] MELENDEZ, GROUP B 6:29 PM [facility] STREPTOCOCCUS REPOSITORY ZENY Culture Group B Beta Streptococcus is not isolated. Performed By: #### [id number] #### [place] [facility] [address] [place], [address] SHOW DOG TRAINER OFFICE VISIT Observed: 03/09/2018 Status: F Source: JANNA REPORT 9:[address] [facility] 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 Is patient in pain?: No Allergies No Known Allergies Allergy (Verified 03/09/18 08:47) Medications calcium carbonate 200 mg calcium (500 mg) chewable tablet 200 mg PO TID tab 09/02/17 [History Confirmed 03/09/18] doxylamine succinate 25 mg tablet 25 mg PO QHS PRN 09/02/17 [History Confirmed 03/09/18] vitamin,calcium,jsizdzdv-wcwv-oalfj acid tablet 1 tab PO QDAY 09/02/17 [History Confirmed 03/09/18] promethazine 12.5 mg tablet 12.5 mg PO Q6H PRN #60 tab 09/02/17 [Rx Confirmed 03/09/18] ondansetron HCl 4 mg tablet 4 mg PO Q6H PRN #20 tab 09/09/17 [Rx Confirmed 03/09/18] metoclopramide 10 mg tablet 10 mg PO TID PRN #90 tab 09/24/17 [Rx Confirmed 03/09/18] ranitidine 150 mg tablet 150 mg PO BID #60 tab 10/29/17 [Rx Confirmed 03/09/18] Last Menstral Period: 06/28/17 Zika: Zika virus screening: Negative : No PFSH PFSH Medical History Anxiety (Acute) Surgical History H/O: knee surgery (Acute) Family History Father Cancer lung- Smoker Grandmother CVA (cerebral vascular accident) Social History Smoking Status: Never smoker alcohol intake: never substance use type: does not use caffeine: Yes what type of physical activity do you participate in: walking seatbelt use: always do you feel safe at home: Yes 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 DateName GA/Weeks Outcome Route Bth WeighInfant GeLabor LgtAnesthesiDel LocatProvider FOB t n h a n HPI 36 WEEK APPOINTMENT: Details: JEANNE BE is a 32 year old who presents for routine OB visit. OB Visit MAE Calculator Estimated Delivery Date 04/04/18 Based on LMP (certain) 06/28/17 Current WG 36w 2d Number 1 Expected Delivery Route/Plan Specific Issue/Plans flu vaccine: declines tdap vaccine: given rhogam: NA LARC form signed: declines labor support person: Reinier pain management: epidural cut cord/dad catch: yes : yes PP control planned: vas planned special requests: [] Initial Weight: Not Recorded Date Weight BP Urine PrFHR FuHt Pres MoCTX DilationFetal StVisit NoProviderComments E ot v te GA G Effac lucose ed Visit Notes Visit Date: 03/09/18 Doing well. No VB, LOF. No CTX. 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 recommend being on FMLA starting now unti ldelivery and recovery Melissa Bertrand MD on 02/09/18 co irregular contractions, no vb lof decreased movement Melissa Bertrand MD on 02/09/18 Visit Date: 01/26/18 Doing well. No VB, LOF. Good FM ROBERTA Quiroga on 01/26/18 Visit Date: 01/12/18 continues low pelvic pain-saw chiropractor and has tape to support low abdomen. No VB, LOF. Good FM ROBERTA Quiroga on 01/12/18 Visit Date: 12/24/17 Work in for earlier today pain left mid abdomen and decreased movement. States now baby active and no longer having pain. Denies VB, LOF, CTX. Brief US confirms active fetus. FHT 148 ROBERTA Quiroga on 12/24/17 Visit Date: 12/22/17 no vb lof good fm no regular ctx Melissa Bertrand MD on 12/29/17 Visit Date: 11/26/17 Dysuria worsening last 3 days with blood in urine. No VB, LOF ROBERTA Quiroga on 11/26/17 Visit Date: 10/29/17 co heartburn-will start zantac Melissa Bertrand MD on 10/29/17 ACOG First Trimester First Trimester: Desire for , Anticipated Course of Care, Use of Any medications, Sexual activity, Exercise, Dental Care, Sauna/Hot tub use, Seat Belt use, Childbirth classes/Hospital facilities, , Travel, Indications for US and Screening for Aneuploidy; discussed Alcohol, discussed Tobacco Cessation, discussed Illicit/Recreational Drug/Substance Use, discussed Intimate Partner Violence, discussed Barriers to care, discussed Unstable Housing, discussed Communication Barriers, discussed Environmental/Work Hazards or discussed Toxoplasmosis [facility] Labs Hct 33.4 % (37-47) L 01/12/18 Hgb 11.1 g/dl (12.0-15.0) L 01/12/18 Obstetrics Ultrasound 11/08/17 Glucose 1 Hr 50 gm 108 mg/dL (70-140) 01/12/18 Details: HIV: Urine Culture: Sequential Screen: NIPT Screen: Results [id number] Office Urine Glucose Negative Last Edit by Sadaf Wasserman on 03/09/18 08:58 Office Urine Protein Negative Last Edit by Sadaf Wasserman on 03/09/18 08:58 Assessment AND Plan Problems 1. Encounter for supervision of other normal in second trimester Z34.82 PRR MAE 04/04/18 girl PC jorge luis, bristol reinier 2. UTI in , antepartum O23.40 11/26/17 Rx macrobid. 12/22/17 repeat culture negative 3. 36 weeks gestation of Z3A.36 genetic and NTD screening declined. anatomy scan normal. Plan Orders placed: GBS confirmed cephalic with US Reviewed of labor precautions, movement/kick counts ACOG trimester education reviewed and updated See problem list details for updated plan of care Gestational age appropriate handout given RTO: 1 week Orders Orders: Coding Level of Care Code OB Routine Diagnoses Encounter for supervision of other normal in second trimester Z34.82 Normal : other normal Trimester: second trimester UTI in , antepartum O23.40 36 weeks gestation of Z3A.36 Weeks of gestation: 36 weeks 03/09/18 0917 <Electronically signed by Radha GRANADOS> Date Radha GRANADOS Cosigner Signature: Date (if applicable) CC: SHOW DOG TRAINER OFFICE VISIT Observed: 02/23/2018 Status: F Source: JANNA REPORT 9:17 AM [facility] [address] [place] [address] OFFICE VISIT Date of Service: 02/23/18 MR#: [id number] Acct: [id number] Name: JEANNE BE Rep #: [id number] : 1985 Provider: Melissa Bertrand MD Age/Sex: 32/F [place] [facility] [place]: Signed Intake Vital Signs02/23/18 Height 5 ft 4 in 02/23/18 Weight: 170 lb 02/23/18 Body Mass Index (BMI) 29.2 02/23/18 Blood Pressure 124/70 H Intake Visit Reasons: 34 weeks 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 Is patient in pain?: No Allergies No Known Allergies Allergy (Verified 02/23/18 09:01) Medications calcium carbonate 200 mg calcium (500 mg) chewable tablet 200 mg PO TID tab 09/02/17 [History Confirmed 02/23/18] doxylamine succinate 25 mg tablet 25 mg PO QHS PRN 09/02/17 [History Confirmed 02/23/18] vitamin,calcium,gsudhssq-dqdk-ehuae acid tablet 1 tab PO QDAY 09/02/17 [History Confirmed 02/23/18] promethazine 12.5 mg tablet 12.5 mg PO Q6H PRN #60 tab 09/02/17 [Rx Confirmed 02/23/18] ondansetron HCl 4 mg tablet 4 mg PO Q6H PRN #20 tab 09/09/17 [Rx Confirmed 02/23/18] metoclopramide 10 mg tablet 10 mg PO TID PRN #90 tab 09/24/17 [Rx Confirmed 02/23/18] ranitidine 150 mg tablet 150 mg PO BID #60 tab 10/29/17 [Rx Confirmed 02/23/18] Last Menstral Period: 06/28/17 Zika: Zika virus screening: Negative : No PFSH PFSH Medical History Anxiety (Acute) Surgical History H/O: knee surgery (Acute) Family History Father Cancer lung- Smoker Grandmother CVA (cerebral vascular accident) Social History Smoking Status: Never smoker alcohol intake: never substance use type: does not use caffeine: Yes what type of physical activity do you participate in: walking seatbelt use: always do you feel safe at home: Yes 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 DateName GA/Weeks Outcome Route Bth WeighInfant GeLabor LgtAnesthesiDel LocatProvider FOB t n h a n HPI 34 weeks: Details: JEANNE BE is a 32 year old who presents for routine OB visit. OB Visit MAE Calculator Estimated Delivery Date 04/04/18 Based on LMP (certain) 06/28/17 Current WG 34w 2d Number 1 Expected Delivery Route/Plan Specific Issue/Plans flu vaccine: declines tdap vaccine: given rhogam: NA LARC form signed: declines labor support person: Reinier pain management: epidural cut cord/dad catch: yes : yes PP control planned: vas planned special requests: [] Initial Weight: Not Recorded Date Weight BP Urine PrFHR FuHt Pres MoCTX DilationFetal StVisit NoProviderComments E ot v te GA G Effac lucose ed Visit Notes Visit Date: 02/23/18 no vb lof good fm n oregular ctx Melissa Bertrand MD on 02/23/18 Visit Date: 02/09/18 co increased anxiety and 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 recommend being on FMLA starting now unti ldelivery and recovery Melissa Bertrand MD on 02/09/18 co irregular contractions, no vb lof decreased movement Melissa Bertrand MD on 02/09/18 Visit Date: 01/26/18 Doing well. No VB, LOF. Good FM ROBERTA Quiroga on 01/26/18 Visit Date: 01/12/18 continues low pelvic pain-saw chiropractor and has tape to support low abdomen. No VB, LOF. Good FM ROBERTA Quiroga on 01/12/18 Visit Date: 12/24/17 Work in for earlier today pain left mid abdomen and decreased movement. States now baby active and no longer having pain. Denies VB, LOF, CTX. Brief US confirms active fetus. FHT 148 ROBERTA Quiroga on 12/24/17 Visit Date: 12/22/17 no vb lof good fm no regular ctx Melissa Bertrand MD on 12/29/17 Visit Date: 11/26/17 Dysuria worsening last 3 days with blood in urine. No VB, LOF ROBERTA Quiroga on 11/26/17 Visit Date: 10/29/17 co heartburn-will start zantac Melissa Bertrand MD on 10/29/17 ACOG First Trimester First Trimester: Desire for , Anticipated Course of Care, Use of Any medications, Sexual activity, Exercise, Dental Care, Sauna/Hot tub use, Seat Belt use, Childbirth classes/Hospital facilities, , Travel, Indications for US and Screening for Aneuploidy; discussed Alcohol, discussed Tobacco Cessation, discussed Illicit/Recreational Drug/Substance Use, discussed Intimate Partner Violence, discussed Barriers to care, discussed Unstable Housing, discussed Communication Barriers, discussed Environmental/Work Hazards or discussed Toxoplasmosis [facility] Labs Hct 33.4 % (37-47) L 01/12/18 Hgb 11.1 g/dl (12.0-15.0) L 01/12/18 Obstetrics Ultrasound 11/08/17 Glucose 1 Hr 50 gm 108 mg/dL (70-140) 01/12/18 Details: HIV: Urine Culture: Sequential Screen: NIPT Screen: Assessment AND Plan Problems 1. 32 weeks gestation of Z3A.32 genetic and NTD screening declined. anatomy scan normal. 2. UTI in , antepartum O23.40 11/26/17 Rx macrobid. 12/22/17 repeat culture negative 3. Encounter for supervision of other normal in second trimester Z34.82 PRR MAE 04/04/18 girl PC celia kang reinier Plan movement and labor precautions reviewed. ACOG trimester education reviewed and updated. see problem list details for updated plan management information and see below for orders placed at this visit. GA appropriate handout given. Orders Orders: Coding Level of Care Code OB Routine Diagnoses 32 weeks gestation of Z3A.32 Weeks of gestation: 32 weeks UTI in , antepartum O23.40 Encounter for supervision of other normal in second trimester Z34.82 Normal : other normal Trimester: second trimester 02/23/18 0917 <Electronically signed by Melissa Bertrand MD> Date Melissa Bertrand MD Cosigner Signature: Date (if applicable) CC: Observed: 02/09/2018 Status: F Source: JANNA CULTURE, GENITAL 2:44 PM [facility] COMPREHENSIVE REPOSITORY Reason for Exam: vaginitis Gram Stain Score = 0 Interpretation: 0-3 Normal, 4-6 Intermediate, 7-10 Positive BV Gram Stain 1+ Epithelial cells 1+ White Blood Cells 4+ Gram positive rods 2+ Gram positive cocci Gent Cult Comp Normal vaginal elgin isolated. No yeast, Gardnerella, Neisseria or beta-hemolytic Streptococcus isolated. Performed By: #### M100.1600 #### [facility] [address], [address] Observed: 02/09/2018 Status: F Source: JANNA CULTURE, URINE 2:44 PM [facility] REPOSITORY Urine Culture Culture exhibits no growth. Performed By: #### M100.0650 #### [facility] [address] [place], [address] SHOW DOG TRAINER OFFICE VISIT Observed: 02/09/2018 Status: F Source: JANNA REPORT 10:06 AM [facility] REPOSITORY [facility] 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 Is patient in pain?: No Allergies No Known Allergies Allergy (Verified 02/09/18 09:24) Medications calcium carbonate 200 mg calcium (500 mg) chewable tablet 200 mg PO TID tab 09/02/17 [History Confirmed 02/09/18] doxylamine succinate 25 mg tablet 25 mg PO QHS PRN 09/02/17 [History Confirmed 02/09/18] vitamin,calcium,omsivetu-ujzm-auxvr acid tablet 1 tab PO QDAY 09/02/17 [History Confirmed 02/09/18] promethazine 12.5 mg tablet 12.5 mg PO Q6H PRN #60 tab 09/02/17 [Rx Confirmed 02/09/18] ondansetron HCl 4 mg tablet 4 mg PO Q6H PRN #20 tab 09/09/17 [Rx Confirmed 02/09/18] metoclopramide 10 mg tablet 10 mg PO TID PRN #90 tab 09/24/17 [Rx Confirmed 02/09/18] ranitidine 150 mg tablet 150 mg PO BID #60 tab 10/29/17 [Rx Confirmed 02/09/18] Last Menstral Period: 06/28/17 Zika: Zika virus screening: Negative : No PFSH PFSH Medical History Anxiety (Acute) Surgical History H/O: knee surgery (Acute) Family History Father Cancer lung- Smoker Grandmother CVA (cerebral vascular accident) Social History Smoking Status: Never smoker alcohol intake: never substance use type: does not use caffeine: Yes what type of physical activity do you participate in: walking seatbelt use: always do you feel safe at home: Yes 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 DateName GA/Weeks Outcome Route Bth WeighInfant GeLabor LgtAnesthesiDel LocatProvider FOB t n h a n HPI 32 weeks: Details: JEANNE BE is a 32 year old who presents for routine OB visit. 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 recommend being on FMLA starting now unti ldelivery and recovery Melissa Bertrand MD on 02/09/18 co irregular contractions, no vb lof decreased movement Melissa Bertrand MD on 02/09/18 Visit Date: 01/26/18 Doing well. No VB, LOF. Good FM ROBERTA Quiroga on 01/26/18 Visit Date: 01/12/18 continues low pelvic pain-saw chiropractor and has tape to support low abdomen. No VB, LOF. Good FM ROBERTA Quiroga on 01/12/18 Visit Date: 12/24/17 Work in for earlier today pain left mid abdomen and decreased movement. States now baby active and no longer having pain. Denies VB, LOF, CTX. Brief US confirms active fetus. FHT 148 ROBERTA Quiroga on 12/24/17 Visit Date: 12/22/17 no vb lof good fm no regular ctx Melissa Bertrand MD on 12/29/17 Visit Date: 11/26/17 Dysuria worsening last 3 days with blood in urine. No VB, LOF ROBERTA Quiroga on 11/26/17 Visit Date: 10/29/17 co heartburn-will start zantac Melissa Bertrand MD on 10/29/17 ACOG First Trimester First Trimester: Desire for , Anticipated Course of Care, Use of Any medications, Sexual activity, Exercise, Dental Care, Sauna/Hot tub use, Seat Belt use, Childbirth classes/Hospital facilities, , Travel, Indications for US and Screening for Aneuploidy; discussed Alcohol, discussed Tobacco Cessation, discussed Illicit/Recreational Drug/Substance Use, discussed Intimate Partner Violence, discussed Barriers to care, discussed Unstable Housing, discussed Communication Barriers, discussed Environmental/Work Hazards or discussed Toxoplasmosis [facility] Labs Hct 33.4 % (37-47) L 01/12/18 Hgb 11.1 g/dl (12.0-15.0) L 01/12/18 Obstetrics Ultrasound 11/08/17 Chlam trachomat DNA PCR Negative (Negative) 09/02/17 N.gonorrhoeae DNA (PCR) Negative (Negative) 09/02/17 Glucose 1 Hr 50 gm 108 mg/dL (70-140) 01/12/18 Details: HIV: Urine Culture: Sequential Screen: NIPT Screen: Results BMSUA Office Urine Color Straw Last Edit by Jasmin Rios on 02/09/18 09:27 [email or web address] Office Urine Glucose Negative Last Edit by Jasmin Rios on 02/09/18 09:28 Office Urine Protein Negative Last Edit by Jasmin Rios on 02/09/18 09:28 Assessment AND Plan Problems 1. 30 weeks gestation of Z3A.30 genetic and NTD screening declined. anatomy scan normal. 2. UTI in , antepartum O23.40 11/26/17 Rx macrobid. 12/22/17 repeat culture negative 3. Encounter for supervision of other normal in second trimester Z34.82 PRR MAE 04/04/18 girl PC celia kang reinier Plan movement and labor precautions reviewed. ACOG trimester education reviewed and updated. see problem list details for updated plan management information and see below for orders placed at this visit. GA appropriate handout given. Orders Orders: Coding Level of Care Code OB Routine Diagnoses 30 weeks gestation of Z3A.30 Weeks of gestation: 30 weeks UTI in , antepartum O23.40 Encounter for supervision of other normal in second trimester Z34.82 Normal : other normal Trimester: second trimester 02/09/18 1006 <Electronically signed by Melissa Bertrand MD> Date Melissa Bertrand MD Cosigner Signature: Date (if applicable) CC: SHOW DOG TRAINER OFFICE VISIT Observed: 01/26/2018 Status: F Source: JANNA REPORT 9:21 AM [facility] 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 Is patient in pain?: No Allergies No Known Allergies Allergy (Verified 01/26/18 08:45) Medications calcium carbonate 200 mg calcium (500 mg) chewable tablet 200 mg PO TID tab 09/02/17 [History Confirmed 01/26/18] doxylamine succinate 25 mg tablet 25 mg PO QHS PRN 09/02/17 [History Confirmed 01/26/18] vitamin,calcium,gkwnjspw-dtoi-tuolm acid tablet 1 tab PO QDAY 09/02/17 [History Confirmed 01/26/18] promethazine 12.5 mg tablet 12.5 mg PO Q6H PRN #60 tab 09/02/17 [Rx Confirmed 01/26/18] ondansetron HCl 4 mg tablet 4 mg PO Q6H PRN #20 tab 09/09/17 [Rx Confirmed 01/26/18] metoclopramide 10 mg tablet 10 mg PO TID PRN #90 tab 09/24/17 [Rx Confirmed 01/26/18] ranitidine 150 mg tablet 150 mg PO BID #60 tab 10/29/17 [Rx Confirmed 01/26/18] Last Menstral Period: 06/28/17 Zika: Zika virus screening: Negative : No PFSH PFSH Medical History Anxiety (Acute) Surgical History H/O: knee surgery (Acute) Family History Father Cancer lung- Smoker Grandmother CVA (cerebral vascular accident) Social History Smoking Status: Never smoker alcohol intake: never substance use type: does not use caffeine: Yes what type of physical activity do you participate in: walking seatbelt use: always do you feel safe at home: Yes 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 DateName GA/Weeks Outcome Route Bth WeighInfant GeLabor LgtAnesthesiDel LocatProvider FOB t n h a n HPI 30 weeks/Needs Tdap: Details: JEANNE BE is a 32 year old who presents for routine OB visit. OB Visit MAE Calculator Estimated Delivery Date 04/04/18 Based on LMP (certain) 06/28/17 Current WG 30w 2d Number 1 Expected Delivery Route/Plan Specific Issue/Plans flu vaccine: [] tdap vaccine: given rhogam: NA LARC form signed: wilfredo labor support person: Reinier pain management: epidural cut cord/dad catch: yes : yes PP control planned: vas planned special requests: [] Initial Weight: Not Recorded Date Weight BP Urine PrFHR FuHt Pres MoCTX DilationFetal StVisit NoProviderComments E ot v te GA G Effac lucose ed Visit Notes Visit Date: 01/26/18 Doing well. No VB, LOF. Good FM ROBERTA Quiroga on 01/26/18 Visit Date: 01/12/18 continues low pelvic pain-saw chiropractor and has tape to support low abdomen. No VB, LOF. Good FM ROBERTA Quiroga on 01/12/18 Visit Date: 12/24/17 Work in for earlier today pain left mid abdomen and decreased movement. States now baby active and no longer having pain. Denies VB, LOF, CTX. Brief US confirms active fetus. FHT 148 ROBERTA Quiroga on 12/24/17 Visit Date: 12/22/17 no vb lof good fm no regular ctx Melissa Bertrand MD on 12/29/17 Visit Date: 11/26/17 Dysuria worsening last 3 days with blood in urine. No VB, LOF ROBERTA Quiroga on 11/26/17 Visit Date: 10/29/17 co heartburn-will start zantac Melissa Bertrand MD on 10/29/17 ACOG First Trimester First Trimester: Desire for , Anticipated Course of Care, Use of Any medications, Sexual activity, Exercise, Dental Care, Sauna/Hot tub use, Seat Belt use, Childbirth classes/Hospital facilities, , Travel, Indications for US and Screening for Aneuploidy; discussed Alcohol, discussed Tobacco Cessation, discussed Illicit/Recreational Drug/Substance Use, discussed Intimate Partner Violence, discussed Barriers to care, discussed Unstable Housing, discussed Communication Barriers, discussed Environmental/Work Hazards or discussed Toxoplasmosis [facility] Labs Blood Type O POSITIVE 09/02/17 Antibody Screen NEGATIVE 09/02/17 Hct 33.4 % (37-47) L 01/12/18 Hgb 11.1 g/dl (12.0-15.0) L 01/12/18 Obstetrics Ultrasound 11/08/17 Rubella IgG Antibody 163.9 IU/mL 09/02/17 RPR NONREACTIVE (NONREACTIVE) 09/02/17 Hep Bs Antigen Negative (Negative) 09/02/17 Chlam trachomat DNA PCR Negative (Negative) 09/02/17 N.gonorrhoeae DNA (PCR) Negative (Negative) 09/02/17 Glucose 1 Hr 50 gm 108 mg/dL (70-140) 01/12/18 Details: HIV: Urine Culture: Sequential Screen: NIPT Screen: Results [email or web address] Office Urine Glucose Negative Last Edit by Sadaf Wasserman on 01/26/18 08:57 Office Urine Protein Negative Last Edit by Sadaf Wasserman on 01/26/18 08:57 Immunizations Boostrix Tdap Performing Provider: ROBERTA Quiroga Administered by: Sadaf Wasserman on 01/26/18 08:54 Dose Route Admin Location Lot Number Expiration Date 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 Encounter for supervision of other normal in second trimester Z34.82 PRR MAE 04/04/18 girl celia Baez reinier 2. 30 weeks gestation of Z3A.30 genetic and NTD screening declined. anatomy scan normal. 3. UTI in , antepartum O23.40 11/26/17 Rx macrobid. 8/29/18 repeat culture negative Plan Orders placed: tdap Reviewed of labor precautions, movement/kick counts ACOG trimester education reviewed and updated See problem list details for updated plan of care Gestational age appropriate handout given RTO: 2 weeks Orders Orders: Medications Discontinued: Boostrix Tdap (diphth,pertus(acell),tetanus) Discontinue0.5 mL IM ONCE 1 mL 0RF NS Z23 d Reason: Office Medication has been Documented as given Coding Level of Care Code OB Routine Diagnoses Encounter for supervision of other normal in second trimester Z34.82 Normal : other normal Trimester: second trimester 30 weeks gestation of Z3A.30 Weeks of gestation: 30 weeks UTI in , antepartum O23.40 01/26/18 0921 <Electronically signed by Radha GRANADOS> Date Radha GRANADOS Cosigner Signature: Date (if applicable) CC: CBC W/DIFF, AUTOMATED Collected: 01/12/2018 Status: F Source: JANNA 12:25 PM [facility] REPOSITORY TYPE CODE TESTS RESULT OUT OF RANGE REFERENCE UNITS LAB L100.1000 4.4-11.0 K/mm3 Normal WBC 10.5 LAB L100.1200 4.2-5.4 M/mm3 Low RBC 3.57 LAB L100.1300 12.0-15.0 g/dl Low HGB 11.1 LAB L100.1400 37-47 % Low HCT 33.4 LAB L100.1500 81-99 fL Normal MCV 93.6 LAB L100.1600 27.0-32.0 pg Normal MCH 31.1 LAB L100.1700 32-36 g/gl Normal MCHC 33.2 LAB L100.1810 11.6-14.6 % Normal RDW CV 12.5 LAB L100.1820 35.1-43.9 fl Normal RDW SD 41.6 LAB L100.1900 150-450 K/mm3 Low PLT 119 LAB L100.2000 6.2-12.0 fl High MPV 13.8 LAB L100.2100 47-70 % High NEUT% 78.3 LAB L100.2200 19-41 % Low LY% 13.4 LAB L100.2300 0-10 % Normal MONO% 7.0 LAB L100.2400 0-5 % Normal EO% 0.9 LAB L100.2500 0-1 % Normal BASO% 0.1 LAB L100.2550 0.0-0.9 % Normal IM GRAN % 0.300 Result Comment: IG% - Immature Granulocytes (promyelocytes, myelocytes and metamyelocytes) > 1% indicates that a LEFT SHIFT is Present. LAB L100.2620 2.0-7.7 X10 3/uL High Absolute Neut 8.2 LAB L100.2720 0.83-4.51 X10 3/ul Normal Absolute Lymph 1.41 Performed By: #### L100.0100 #### [facility] [address] [place], [address] GLUCOSE CHALLENGE GEST Collected: 01/12/2018 Status: F Source: JANNA 1H 50G 12:25 PM [facility] REPOSITORY Order Comment: Comments: Draw at 12:28am Comments: Draw at 12:28am TYPE CODE TESTS RESULT OUT OF RANGE REFERENCE UNITS LAB L501.0250 70-140 mg/dL Normal GLU GEST 108 50g 1H Performed By: #### L501.0250 #### [facility] [address] [place], [address] SHOW DOG TRAINER OFFICE VISIT Observed: 01/12/2018 Status: F Source: JANNA REPORT 11:55 AM [facility] REPOSITORY [facility] 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 Is patient in pain?: No Allergies No Known Allergies Allergy (Verified 01/12/18 11:39) Medications calcium carbonate 200 mg calcium (500 mg) chewable tablet 200 mg PO TID tab 09/02/17 [History Confirmed 01/12/18] doxylamine succinate 25 mg tablet 25 mg PO QHS PRN 09/02/17 [History Confirmed 01/12/18] vitamin,calcium,sjtnqeck-giwr-ckhpp acid tablet 1 tab PO QDAY 09/02/17 [History Confirmed 01/12/18] promethazine 12.5 mg tablet 12.5 mg PO Q6H PRN #60 tab 09/02/17 [Rx Confirmed 01/12/18] ondansetron HCl 4 mg tablet 4 mg PO Q6H PRN #20 tab 09/09/17 [Rx Confirmed 01/12/18] metoclopramide 10 mg tablet 10 mg PO TID PRN #90 tab 09/24/17 [Rx Confirmed 01/12/18] ranitidine 150 mg tablet 150 mg PO BID #60 tab 10/29/17 [Rx Confirmed 01/12/18] Last Menstral Period: 06/28/17 Zika: Zika virus screening: Negative : No PFSH PFSH Medical History Anxiety (Acute) Surgical History H/O: knee surgery (Acute) Family History Father Cancer lung- Smoker Grandmother CVA (cerebral vascular accident) Social History Smoking Status: Never smoker alcohol intake: never substance use type: does not use caffeine: Yes what type of physical activity do you participate in: walking seatbelt use: always do you feel safe at home: Yes 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 DateName GA/Weeks Outcome Route Bth WeighInfant GeLabor LgtAnesthesiDel LocatProvider FOB t n h a n HPI 28 weeks: Details: JEANNE BE is a 32 year old who presents for routine OB visit. OB Visit MAE Calculator Estimated Delivery Date 04/04/18 Based on LMP (certain) 06/28/17 Current WG 28w 2d Number 1 Expected Delivery Route/Plan Specific Issue/Plans flu vaccine: [] tdap vaccine: [] rhogam: NA LARC form signed: [] labor support person: Reinier pain management: [] cut cord/dad catch: [] : yes PP control planned: [] special requests: [] Initial Weight: Not Recorded Date Weight BP Urine PrFHR FuHt Pres MoCTX DilationFetal StVisit NoProviderComments E ot v te GA G Effac lucose ed Visit Notes Visit Date: 01/12/18 continues low pelvic pain-saw chiropractor and has tape to support low abdomen. No VB, LOF. Good FM ROBERTA Quiroga on 01/12/18 Visit Date: 12/24/17 Work in for earlier today pain left mid abdomen and decreased movement. States now baby active and no longer having pain. Denies VB, LOF, CTX. Brief US confirms active fetus. FHT 148 ROBERTA Quiroga on 12/24/17 Visit Date: 12/22/17 no vb lof good fm no regular ctx Melissa Bertrand MD on 12/29/17 Visit Date: 11/26/17 Dysuria worsening last 3 days with blood in urine. No VB, LOF ROBERTA Quiroga on 11/26/17 Visit Date: 10/29/17 co heartburn-will start zantac Melissa Bertrand MD on 10/29/17 ACOG First Trimester First Trimester: Desire for , Anticipated Course of Care, Use of Any medications, Sexual activity, Exercise, Dental Care, Sauna/Hot tub use, Seat Belt use, Childbirth classes/Hospital facilities, , Travel, Indications for US and Screening for Aneuploidy; discussed Alcohol, discussed Tobacco Cessation, discussed Illicit/Recreational Drug/Substance Use, discussed Intimate Partner Violence, discussed Barriers to care, discussed Unstable Housing, discussed Communication Barriers, discussed Environmental/Work Hazards or discussed Toxoplasmosis [facility] Labs Blood Type O POSITIVE 09/02/17 Antibody Screen NEGATIVE 09/02/17 Hct 36.7 % (37-47) L 09/02/17 Hgb 12.6 g/dl (12.0-15.0) 09/02/17 Obstetrics Ultrasound 11/08/17 Rubella IgG Antibody 163.9 IU/mL 09/02/17 RPR NONREACTIVE (NONREACTIVE) 09/02/17 Hep Bs Antigen Negative (Negative) 09/02/17 Chlam trachomat DNA PCR Negative (Negative) 09/02/17 N.gonorrhoeae DNA (PCR) Negative (Negative) 09/02/17 Pap Smear Negative 07/15/10 Details: HIV: Urine Culture: Sequential Screen: NIPT Screen: Results [id number] Office Urine Glucose Negative Last Edit by Cheri Sousa on 01/12/18 11:42 Office Urine Protein Negative Last Edit by Cheri Sousa on 01/12/18 11:42 Assessment AND Plan Problems 1. Encounter for supervision of other normal in second trimester Z34.82 PRR MAE 04/04/18 girl PC jorge luis, celia reinier 2. UTI in , antepartum O23.40 11/26/17 Rx macrobid. 12/22/17 repeat culture negative 3. 28 weeks gestation of Z3A.28 genetic and NTD screening declined. anatomy scan normal. Plan Orders placed: 28 week labs Reviewed of labor precautions, movement/kick counts ACOG trimester education reviewed and updated See problem list details for updated plan of care Gestational age appropriate handout given RTO: 2 weeks and tdap Orders Orders: Coding Level of Care Code OB Routine Diagnoses Encounter for supervision of other normal in second trimester Z34.82 Normal : other normal Trimester: second trimester UTI in , antepartum O23.40 28 weeks gestation of Z3A.28 Weeks of gestation: 28 weeks 01/12/18 1155 <Electronically signed by Radha GRANADOS> Date Radha GRANADOS Cosigner Signature: Date (if applicable) CC: Observed: 01/05/2018 Status: F Source: MARSHALL Stern URINE 5:19 PM [facility] REPOSITORY Final Report: Rare Normal skin elgin isolated Performed By: #### [id number] #### [facility] [address] [place] [address] SHOW DOG TRAINER OFFICE VISIT Observed: 12/29/2017 Status: F Source: JANNA REPORT 5:51 AM [facility] REPOSITORY [facility] [address] [place] [address]. 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 Is patient in pain?: No Allergies No Known Allergies Allergy (Verified 12/24/17 14:48) Medications calcium carbonate 200 mg calcium (500 mg) chewable tablet 200 mg PO TID tab 09/02/17 [History Confirmed 12/24/17] doxylamine succinate 25 mg tablet 25 mg PO QHS PRN 09/02/17 [History Confirmed 12/24/17] vitamin,calcium,dvbiogho-zkwj-rhoil acid tablet 1 tab PO QDAY 09/02/17 [History Confirmed 12/24/17] promethazine 12.5 mg tablet 12.5 mg PO Q6H PRN #60 tab 09/02/17 [Rx Confirmed 12/24/17] ondansetron HCl 4 mg tablet 4 mg PO Q6H PRN #20 tab 09/09/17 [Rx Confirmed 12/24/17] metoclopramide 10 mg tablet 10 mg PO TID PRN #90 tab 09/24/17 [Rx Confirmed 12/24/17] ranitidine 150 mg tablet 150 mg PO BID #60 tab 10/29/17 [Rx Confirmed 12/24/17] Last Menstral Period: 06/28/17 Zika: Zika virus screening: Negative : No PFSH PFSH Medical History Anxiety (Acute) Surgical History H/O: knee surgery (Acute) Family History Father Cancer lung- Smoker Grandmother CVA (cerebral vascular accident) Social History Smoking Status: Never smoker alcohol intake: never substance use type: does not use caffeine: Yes what type of physical activity do you participate in: walking seatbelt use: always do you feel safe at home: Yes 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 DateName GA/Weeks Outcome Route Bth WeighInfant GeLabor LgtAnesthesiDel LocatProvider FOB t n h a n HPI 25 weeks: Details: JEANNE BE is a 31 year old who presents for routine OB visit. OB Visit MAE Calculator Estimated Delivery Date 04/04/18 Based on LMP (certain) 06/28/17 Current WG 26w 2d Number 1 Expected Delivery Route/Plan Specific Issue/Plans flu vaccine: [] minichart given: [] tdap vaccine: [] rhogam: [] LARC form signed: [] labor support person: [] pain management: [] cut cord/dad catch: [] : [] PP control planned: [] special requests: [] Initial Weight: Not Recorded Date Weight BP Urine PrFHR FuHt Pres MoCTX DilationFetal StVisit NoProviderComments E ot v te GA G Effac lucose ed Visit Notes Visit Date: 12/24/17 Work in for earlier today pain left mid abdomen and decreased movement. States now baby active and no longer having pain. Denies VB, LOF, CTX. Brief US confirms active fetus. FHT 148 CIELO QuirogaC on 12/24/17 Visit Date: 12/22/17 no vb lof good fm no regular ctx Melissa Bertrand MD on 12/29/17 Visit Date: 11/26/17 Dysuria worsening last 3 days with blood in urine. No VB, LOF ROBERTA Quiroga on 11/26/17 Visit Date: 10/29/17 co heartburn-will start zantac Melissa Bertrand MD on 10/29/17 ACOG First Trimester First Trimester: Desire for , Anticipated Course of Care, Use of Any medications, Sexual activity, Exercise, Dental Care, Sauna/Hot tub use, Seat Belt use, Childbirth classes/Hospital facilities, , Travel, Indications for US and Screening for Aneuploidy; discussed Alcohol, discussed Tobacco Cessation, discussed Illicit/Recreational Drug/Substance Use, discussed Intimate Partner Violence, discussed Barriers to care, discussed Unstable Housing, discussed Communication Barriers, discussed Environmental/Work Hazards or discussed Toxoplasmosis [facility] Labs Blood Type O POSITIVE 09/02/17 Antibody Screen NEGATIVE 09/02/17 Hct 36.7 % (37-47) L 09/02/17 Hgb 12.6 g/dl (12.0-15.0) 09/02/17 Obstetrics Ultrasound 11/08/17 Rubella IgG Antibody 163.9 IU/mL 09/02/17 RPR NONREACTIVE (NONREACTIVE) 09/02/17 Hep Bs Antigen Negative (Negative) 09/02/17 Chlam trachomat DNA PCR Negative (Negative) 09/02/17 N.gonorrhoeae DNA (PCR) Negative (Negative) 09/02/17 Details: HIV: Urine Culture: Sequential Screen: NIPT Screen: Results [id number] Office Urine Glucose Negative Last Edit by Cheri Sousa on 12/22/17 09:59 Office Urine Protein Negative Last Edit by Cheri oSusa on 12/22/17 09:59 Assessment AND Plan Problems 1. Encounter for supervision of other normal in second trimester Z34.82 PRR MAE 04/04/18 girl celia Baez reinier 2. UTI in , antepartum O23.40 11/26/17 Rx macrobid. needs repeat culture next visit 3. 24 weeks gestation of Z3A.24 genetic and NTD screening declined. anatomy scan normal. Plan ACOG trimester education reviewed and updated. see problem list details for updated plan management information and see below for orders placed at this visit. GA appropriate handout given. Orders Orders: Coding Level of Care Code OB Routine Diagnoses Encounter for supervision of other normal in second trimester Z34.82 Normal : other normal Trimester: second trimester UTI in , antepartum O23.40 24 weeks gestation of Z3A.24 Weeks of gestation: 24 weeks 12/29/17 0551 <Electronically signed by Melissa Bertrand MD> Date Melissa Bertrand MD Cosigner Signature: Date (if applicable) CC: SHOW DOG TRAINER OFFICE VISIT Observed: 12/24/2017 Status: F Source: JANNA REPORT 3:08 PM [facility] REPOSITORY [facility] [address] [place] [address] OFFICE VISIT Date of Service: 12/24/17 MR#: [id number] Acct: [id number] Name: JEANNE BE Rep #: [id number] : 1985 Provider: KARTIK Castaneda Age/Sex: 31/F [place] [facility] [place] Status: Signed Intake Vital Signs12/24/17 Height 5 ft 4 in 12/24/17 Blood Pressure 124/76 Intake Visit Reasons: LLQ pain/Decrease FM Chief Complaint: LLQ pain and decreased FM 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 Is patient in pain?: Yes Allergies No Known Allergies Allergy (Verified 12/24/17 14:48) Medications calcium carbonate 200 mg calcium (500 mg) chewable tablet 200 mg PO TID tab 09/02/17 [History Confirmed 12/24/17] doxylamine succinate 25 mg tablet 25 mg PO QHS PRN 09/02/17 [History Confirmed 12/24/17] vitamin,calcium,iocwkylv-xpze-oiato acid tablet 1 tab PO QDAY 09/02/17 [History Confirmed 12/24/17] promethazine 12.5 mg tablet 12.5 mg PO Q6H PRN #60 tab 09/02/17 [Rx Confirmed 12/24/17] ondansetron HCl 4 mg tablet 4 mg PO Q6H PRN #20 tab 09/09/17 [Rx Confirmed 12/24/17] metoclopramide 10 mg tablet 10 mg PO TID PRN #90 tab 09/24/17 [Rx Confirmed 12/24/17] ranitidine 150 mg tablet 150 mg PO BID #60 tab 10/29/17 [Rx Confirmed 12/24/17] Last Menstral Period: 06/28/17 Zika: Zika virus screening: Negative : No PFSH PFSH Medical History Anxiety (Acute) Surgical History H/O: knee surgery (Acute) Family History Father Cancer lung- Smoker Grandmother CVA (cerebral vascular accident) Social History Smoking Status: Never smoker alcohol intake: never substance use type: does not use caffeine: Yes what type of physical activity do you participate in: walking seatbelt use: always do you feel safe at home: Yes 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 DateName GA/Weeks Outcome Route Bth WeighInfant GeLabor LgtAnesthesiDel LocatProvider FOB t n h a n HPI LLQ pain/Decrease FM: Details: JEANNE BE is a 31 year old who presents for routine OB visit. OB Visit MAE Calculator Estimated Delivery Date 04/04/18 Based on LMP (certain) 06/28/17 Current WG 25w 4d Number 1 Expected Delivery Route/Plan Specific Issue/Plans flu vaccine: [] minichart given: [] tdap vaccine: [] rhogam: [] LARC form signed: [] labor support person: [] pain management: [] cut cord/dad catch: [] : [] PP control planned: [] special requests: [] Initial Weight: Not Recorded Date Weight BP Urine PrFHR FuHt Pres MoCTX DilationFetal StVisit NoProviderComments E ot v te GA G Effac lucose ed Visit Notes Visit Date: 12/24/17 Work in for earlier today pain left mid abdomen and decreased movement. States now baby active and no longer having pain. Denies VB, LOF, CTX. Brief US confirms active fetus. FHT 148 ROBERTA Quiroga on 12/24/17 Visit Date: 11/26/17 Dysuria worsening last 3 days with blood in urine. No VB, LOF ROBERTA Quiroga on 11/26/17 Visit Date: 10/29/17 co heartburn-will start zantac Melissa Bertrand MD on 10/29/17 ACOG First Trimester First Trimester: Desire for , Anticipated Course of Care, Use of Any medications, Sexual activity, Exercise, Dental Care, Sauna/Hot tub use, Seat Belt use, Childbirth classes/Hospital facilities, , Travel, Indications for US and Screening for Aneuploidy; discussed Alcohol, discussed Tobacco Cessation, discussed Illicit/Recreational Drug/Substance Use, discussed Intimate Partner Violence, discussed Barriers to care, discussed Unstable Housing, discussed Communication Barriers, discussed Environmental/Work Hazards or discussed Toxoplasmosis [facility] Labs Blood Type O POSITIVE 09/02/17 Antibody Screen NEGATIVE 09/02/17 Hct 36.7 % (37-47) L 09/02/17 Hgb 12.6 g/dl (12.0-15.0) 09/02/17 Obstetrics Ultrasound 11/08/17 Rubella IgG Antibody 163.9 IU/mL 09/02/17 RPR NONREACTIVE (NONREACTIVE) 09/02/17 Hep Bs Antigen Negative (Negative) 09/02/17 Chlam trachomat DNA PCR Negative (Negative) 09/02/17 N.gonorrhoeae DNA (PCR) Negative (Negative) 09/02/17 Details: HIV: Urine Culture: Sequential Screen: NIPT Screen: Results [id number] Office Urine Glucose Negative Last Edit by Doris Xie on 12/24/17 14:46 Office Urine Protein Negative Last Edit by Doris Xie on 12/24/17 14:46 Assessment AND Plan Problems 1. Encounter for supervision of other normal in second trimester Z34.82 PRR MAE 04/04/18 girl PC celia kang reinier 2. 25 weeks gestation of Z3A.25 3. Round ligament pain N94.9 Plan Rest, tylenol, force fluids Kick counts. S AND S PTL. RTO routine OB appt, prn problems. Orders Orders: Coding Level of Care Code OB Routine Diagnoses Encounter for supervision of other normal in second trimester Z34.82 Normal : other normal Trimester: second trimester 25 weeks gestation of Z3A.25 Round ligament pain N94.9 12/24/17 1508 <Electronically signed by Radha GRANADOS> Date Radha Castaneda NP-C Cosigner Signature: Date (if applicable) CC: Observed: 12/22/2017 Status: F Source: JANNA CULTURE, URINE 12:00 AM [facility] REPOSITORY Urine Culture Culture exhibits no growth. Performed By: #### M100.0650 #### [facility] [address] [place], [address] Observed: 11/26/2017 Status: F Source: JANNA CULTURE, URINE 4:51 PM [facility] REPOSITORY Urine Culture Probable contaminants. ORGANISM 1: Mixed Gram Positive Organisms [place] Count >100,000 Performed By: #### M100.0650 #### [facility] [address] [place], [address] SHOW DOG TRAINER OFFICE VISIT Observed: 11/26/2017 Status: F Source: JANNA REPORT 11:26 AM [facility] REPOSITORY [facility] [address] [place] [address] OFFICE VISIT Date of Service: 11/26/17 MR#: [id number] Acct: [id number] Name: JEANNE BE Rep #: [id number] : 1985 Provider: KARTIK Castaneda Age/Sex: 31/F Location: [facility] [place] Status: Signed Intake Vital Signs11/26/17 Height 5 ft 4 in 11/26/17 Weight: 146 lb 4 oz 11/26/17 Body Mass Index (BMI) 25.1 11/26/17 Blood Pressure 112/66 Intake Visit Reasons: 21 weeks 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 Is patient in pain?: Yes Allergies No Known Allergies Allergy (Verified 11/26/17 11:16) Medications calcium carbonate 200 mg calcium (500 mg) chewable tablet 200 mg PO TID tab 09/02/17 [History Confirmed 11/26/17] doxylamine succinate 25 mg tablet 25 mg PO QHS PRN 09/02/17 [History Confirmed 11/26/17] vitamin,calcium,gbvmteug-tiwl-uabmq acid tablet 1 tab PO QDAY 09/02/17 [History Confirmed 11/26/17] promethazine 12.5 mg tablet 12.5 mg PO Q6H PRN #60 tab 09/02/17 [Rx Confirmed 11/26/17] ondansetron HCl 4 mg tablet 4 mg PO Q6H PRN #20 tab 09/09/17 [Rx Confirmed 11/26/17] metoclopramide 10 mg tablet 10 mg PO TID PRN #90 tab 09/24/17 [Rx Confirmed 11/26/17] ranitidine 150 mg tablet 150 mg PO BID #60 tab 10/29/17 [Rx Confirmed 11/26/17] nitrofurantoin macrocrystal 100 mg capsule 100 mg PO BID 7 Days #14 cap 11/26/17 [Rx Confirmed 11/26/17] Last Menstral Period: 06/28/17 Zika: Zika virus screening: Negative : No PFSH PFSH Medical History Anxiety (Acute) Surgical History H/O: knee surgery (Acute) Family History Father Cancer lung- Smoker Grandmother CVA (cerebral vascular accident) Social History Smoking Status: Never smoker alcohol intake: never substance use type: does not use caffeine: Yes what type of physical activity do you participate in: walking seatbelt use: always do you feel safe at home: Yes 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 DateName GA/Weeks Outcome Route Bth WeighInfant GeLabor LgtAnesthesiDel LocatProvider FOB t n h a n HPI 21 weeks : Details: JEANNE BE is a 31 year old who presents for routine OB visit. OB Visit MAE Calculator Estimated Delivery Date 04/04/18 Based on LMP (certain) 06/28/17 Current WG 21w 4d Number 1 Expected Delivery Route/Plan Specific Issue/Plans flu vaccine: [] minichart given: [] tdap vaccine: [] rhogam: [] LARC form signed: [] labor support person: [] pain management: [] cut cord/dad catch: [] : [] PP control planned: [] special requests: [] Initial Weight: Not Recorded Date Weight BP Urine PrFHR FuHt Pres MoCTX DilationFetal StVisit NoProviderComments E ot v te GA G Effac lucose ed Visit Notes Visit Date: 11/26/17 Dysuria worsening last 3 days with blood in urine. No VB, LOF Radha Castaneda NP-Leena on 11/26/17 Visit Date: 10/29/17 co heartburn-will start zantac Melissa Bertrand MD on 10/29/17 ACOG First Trimester First Trimester: Desire for , Anticipated Course of Care, Use of Any medications, Sexual activity, Exercise, Dental Care, Sauna/Hot tub use, Seat Belt use, Childbirth classes/Hospital facilities, , Travel, Indications for US and Screening for Aneuploidy; discussed Alcohol, discussed Tobacco Cessation, discussed Illicit/Recreational Drug/Substance Use, discussed Intimate Partner Violence, discussed Barriers to care, discussed Unstable Housing, discussed Communication Barriers, discussed Environmental/Work Hazards or discussed Toxoplasmosis [facility] Labs Blood Type O POSITIVE 09/02/17 Antibody Screen NEGATIVE 09/02/17 Hct 36.7 % (37-47) L 09/02/17 Hgb 12.6 g/dl (12.0-15.0) 09/02/17 Obstetrics Ultrasound 11/08/17 Rubella IgG Antibody 163.9 IU/mL 09/02/17 RPR NONREACTIVE (NONREACTIVE) 09/02/17 Hep Bs Antigen Negative (Negative) 09/02/17 Chlam trachomat DNA PCR Negative (Negative) 09/02/17 N.gonorrhoeae DNA (PCR) Negative (Negative) 09/02/17 Details: HIV: Urine Culture: Sequential Screen: NIPT Screen: Results BMSUA Office Urine Color Yellow Last Edit by Sadaf Wasserman on 11/26/17 11:19 Office Urine Clarity Cloudy Last Edit by Sadaf Wasserman on 11/26/17 11:19 Assessment AND Plan Problems 1. Encounter for supervision of other normal in second trimester Z34.82 PRR MAE 04/04/18 girl PC jorg eluis, bristol reinier 2. UTI in , antepartum O23.40 11/26/17 Rx macrobid. needs repeat culture next visit 3. 21 weeks gestation of Z3A.21 Plan Orders placed: macrobid; urine culture Reviewed of labor precautions, movement/kick counts ACOG trimester education reviewed and updated See problem list details for updated plan of care Gestational age appropriate handout given RTO: 4 weeks Orders Orders: Medications New: Coding Level of Care Code OB Routine Diagnoses Encounter for supervision of other normal in second trimester Z34.82 UTI in , antepartum O23.40 21 weeks gestation of Z3A.21 11/26/17 1126 <Electronically signed by Radha GRANADOS> Date Radha GRANADOS Cosigner Signature: Date (if applicable) CC: OB ANATOMY SCAN Observed: 11/08/2017 Status: F Source: JANNA 1:03 PM [facility] REPOSITORY [facility] [address] [address] OB Anatomy Scan MR#: [id number] Acct: [id number] Name: JEANNE BE Rep #: [id number] : 1985 F 31 From: Mychal Medley MD PCP: Status: REG CLI Study: OB Anatomy Scan Date of Exam: 11/08/17 Exam# [id number] Ordering Dr: Radha Castaneda SIDE PIECE COVERERMelly STUDY: SECOND AND THIRD TRIMESTER OBSTETRICAL ULTRASOUND REASON FOR EXAM: Female, 31 years old. Routine survey. LMP: June 28, 2017. TECHNIQUE: Transabdominal PRIOR ULTRASOUND: None. FINDINGS: There is a single intrauterine fetus. The fetus is in a breech presentation. There is demonstrated cardiac activity with a heart rate of 160 bpm. There is a normal amniotic fluid volume. The largest amniotic fluid pocket measures 4.9 cm x 4.0 cm. The amniotic fluid index (COCO) is within normal limits. The placenta is posterior in location and is not low lying. There are Grade 0 placental changes. The cervix measures 3.8 cm in length. The bilateral adnexal regions are normal. BIOMETRY: BPD: 4.21 cm: 18 weeks, 6 days HC: 16.45 cm: 19 weeks, 2 days AC: 14.27 cm: 19 weeks, 5 days FL: 2.91 cm: 19 weeks, 0 days CI: 72% FL/BPD: 69% FL/HC: FL/AC: 20% HC/AC: 1.15 age by current US: 19 weeks, 2 days. MAE by current US: April 02, 2018. Estimated weight: 284 grams, +/- 41 grams, 62 %. Age by LMP: 19 weeks, 0 days. MAE by LMP: April 04, 2018. ANATOMY: Gender: Female Cranium: Normal lateral ventricles. Normal choroid plexus. Normal cerebellum. Normal cisterna magna. Normal face, nose and lips. Chest: Normal 4-chamber heart. Abdomen/Pelvis: Normal diaphragm. Normal stomach. Normal abdominal wall. Normal cord insertion. Normal 3 vessel cord. Normal kidneys. Normal bladder. Spine: Normal cervical spine. Normal thoracic spine. Normal lumbar spine. Normal sacrum. Extremities: Normal bilateral upper extremities. Normal bilateral lower extremities. US/OB Anatomy Scan IMPRESSION: Single live intrauterine gestation with a mean gestational age of 19 weeks and 2 days. Electronically Signed: Mychal Medley MD at 15:43 EDT Tel [phone], Service support , CC: KARTIK Castaneda Grocery Clerk Marking: Signed SHOW DOG TRAINER OFFICE VISIT Observed: 10/29/2017 Status: F Source: UKIAH REPORT 12:15 PM [facility] REPOSITORY [facility] [address] [place] [address] OFFICE VISIT Date of Service: 10/29/17 MR#: [id number] Acct: [id number] Name: JEANNE BE Rep #: [id number] : 1985 Provider: Melissa Bertrand MD Age/Sex: 31/F [place] [facility] [place]: Signed Intake Vital Signs10/29/17 Height 5 ft 4 in 10/29/17 Weight: 140 lb 4 oz 10/29/17 Body Mass Index (BMI) 24.0 10/29/17 Blood Pressure 106/68 Intake Visit Reasons: 17 weeks ob 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 Is patient in pain?: No Allergies No Known Allergies Allergy (Verified 10/29/17 12:04) Medications calcium carbonate 200 mg calcium (500 mg) chewable tablet 200 mg PO TID tab 09/02/17 [History Confirmed 10/29/17] doxylamine succinate 25 mg tablet 25 mg PO QHS PRN 09/02/17 [History Confirmed 10/29/17] vitamin,calcium,qrsnadrl-mjyu-bzyxx acid tablet 1 tab PO QDAY 09/02/17 [History Confirmed 10/29/17] promethazine 12.5 mg tablet 12.5 mg PO Q6H PRN #60 tab 09/02/17 [Rx Confirmed 10/29/17] ondansetron HCl 4 mg tablet 4 mg PO Q6H PRN #20 tab 09/09/17 [Rx Confirmed 10/29/17] metoclopramide 10 mg tablet 10 mg PO TID PRN #90 tab 09/24/17 [Rx Confirmed 10/29/17] Last Menstral Period: 06/28/17 Zika: Zika virus screening: Negative PFSH PFSH Medical History Anxiety (Acute) Surgical History H/O: knee surgery (Acute) Family History Father Cancer lung- Smoker Grandmother CVA (cerebral vascular accident) Social History Smoking Status: Never smoker alcohol intake: never substance use type: does not use caffeine: Yes what type of physical activity do you participate in: walking seatbelt use: always do you feel safe at home: Yes 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 DateName GA/Weeks Outcome Route Bth WeighInfant GeLabor LgtAnesthesiDel LocatProvider FOB t n h a n HPI 17 weeks ob: Details: JEANNE BE is a 31 year old who presents for routine OB visit. OB Visit MAE Calculator Estimated Delivery Date 04/04/18 Based on LMP (certain) 06/28/17 Current WG 17w 4d Number 1 Expected Delivery Route/Plan Specific Issue/Plans flu vaccine: [] minichart given: [] tdap vaccine: [] rhogam: [] LARC form signed: [] labor support person: [] pain management: [] cut cord/dad catch: [] : [] PP control planned: [] special requests: [] Initial Weight: Not Recorded Date Weight BP Urine PrFHR FuHt Pres MoCTX DilationFetal StVisit NoProviderComments E ot v te GA G Effac lucose ed Visit Notes Visit Date: 10/29/17 co heartburn-will start zantac Melissa Bertrand MD on 10/29/17 ACOG First Trimester First Trimester: Desire for , Anticipated Course of Care, Use of Any medications, Sexual activity, Exercise, Dental Care, Sauna/Hot tub use, Seat Belt use, Childbirth classes/Hospital facilities, , Travel, Indications for US and Screening for Aneuploidy; discussed Alcohol, discussed Tobacco Cessation, discussed Illicit/Recreational Drug/Substance Use, discussed Intimate Partner Violence, discussed Barriers to care, discussed Unstable Housing, discussed Communication Barriers, discussed Environmental/Work Hazards or discussed Toxoplasmosis [facility] Diagnostics Labs Blood Type O POSITIVE 09/02/17 Antibody Screen NEGATIVE 09/02/17 Hct 36.7 % (37-47) L 09/02/17 Hgb 12.6 g/dl (12.0-15.0) 09/02/17 Rubella IgG Antibody 163.9 IU/mL 09/02/17 RPR NONREACTIVE (NONREACTIVE) 09/02/17 Hep Bs Antigen Negative (Negative) 09/02/17 Chlam trachomat DNA PCR Negative (Negative) 09/02/17 N.gonorrhoeae DNA (PCR) Negative (Negative) 09/02/17 Details: HIV: Urine Culture: Sequential Screen: NIPT Screen: Results BMSUA2 Office Urine Glucose Negative Last Edit by Jasmin Rios on 10/29/17 12:05 Office Urine Protein Negative Last Edit by Jasmin Rios on 10/29/17 12:05 Assessment AND Plan Problems 1. Encounter for supervision of other normal in second trimester Z34.82 PRR MAE 04/04/18 girl PC sabinopatriciamahi celia reinier 2. 17 weeks gestation of Z3A.17 Plan Orders placed: none ACOG trimester education reviewed and updated. see problem list details for updated plan management information. GA appropriate handout given. Orders Orders: Coding Level of Care Code OB Routine Diagnoses Encounter for supervision of other normal in second trimester Z34.82 Normal : other normal Trimester: second trimester 17 weeks gestation of Z3A.17 10/29/17 1215 <Electronically signed by Melissa Bertrand MD> Date Melissa Bertrand MD Cosigner Signature: Date (if applicable) CC: CT/NG WCH BY PCR Collected: 09/02/2017 Status: F Source: JANNA 6:05 PM [facility] REPOSITORY TYPE CODE TESTS RESULT OUT OF RANGE REFERENCE UNITS LAB L8200.2100 Negative Normal Chlam Negative Trac PCR LAB L8200.2200 Negative Normal NG by Negative PCR Performed By: #### L8200.2000 #### [facility] [address] [place], [address] Observed: 09/02/2017 Status: F Source: JANNA CULTURE, URINE 6:05 PM [facility] REPOSITORY Urine Culture Culture exhibits no growth. Performed By: #### M100.0650 #### [facility] [address] 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 Is patient in pain?: Yes Allergies No Known Allergies Allergy (Unverified 09/02/17 13:18) Medications calcium carbonate 200 mg calcium (500 mg) chewable tablet 200 mg PO TID tab 09/02/17 [History Confirmed 09/02/17] doxylamine succinate 25 mg tablet 25 mg PO QHS PRN 09/02/17 [History Confirmed 09/02/17] vitamin,calcium,hjyltaxb-fktx-mcami acid tablet 1 tab PO QDAY 09/02/17 [History Confirmed 09/02/17] promethazine 12.5 mg tablet 12.5 mg PO Q6H PRN #60 tab 09/02/17 [Rx Confirmed 09/02/17] Last Menstral Period: 06/28/17 Zika: Zika virus screening: Negative : No PFSH PFSH Medical History Anxiety (Acute) Surgical History H/O: knee surgery (Acute) Family History Father Cancer lung- Smoker Grandmother CVA (cerebral vascular accident) Social History Smoking Status: Never smoker alcohol intake: never substance use type: does not use caffeine: Yes what type of physical activity do you participate in: walking seatbelt use: always do you feel safe at home: Yes 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 DateName GA/Weeks Outcome Route Bth WeighInfant GeLabor LgtAnesthesiDel LocatProvider FOB t n h a n HPI NEW OB LMP [id number]: Details: JEANNE BE is a 31 year old who presents for New OB visit. OB Visit MAE Calculator Estimated Delivery Date 04/04/18 Based on LMP (certain) 06/28/17 Current WG 9w 3d Number 1 Expected Delivery Route/Plan Specific Issue/Plans flu vaccine: [] minichart given: [] tdap vaccine: [] rhogam: [] LARC form signed: [] labor support person: [] pain management: [] cut cord/dad catch: [] : [] PP control planned: [] special requests: [] Menstrual History Last Menstral Period: 06/28/17 Reported LMP: definite Normal amount/duration: Yes On hormonal BC at conception: No hCG+: 07/25/17 Antepartum Record Genetic Screening: Congenital Heart Defect: Other, Neural Tube Defect: Other, Hemoglobinopathy Or Carrier: Other, Cystic Fibrosis: Other, Chromosome Abnormality: Other, Mendel-Sachs: Other, Hemophilia: Other, Intellectual Disability/Autism: Other, Recurrent Loss/Stillbirth: Other, Other Structural Defect: Other, Other Genetic Disease: Other, Maternal Metabolic Disorder: Other Infection History: Live with someone with TB or Exposed to TB: No, Patient or Partner has history of Genital Herpes: No, Rash or Viral illness since last mentrual period: No, Prior GBS-Infected child: No, History of STD: No, HIV Infection: No, History of Hepatitis: No, Recent travel outside of [place]: No, Concern for Hep exposure: No, Varicella immune: Yes (had chicken pox) Medical History Medical History: Positive: Seasonal allergies, Operations/hospitalizations (2 vaginal deliveries; left knee surgury), Negative: Diabetes, Hypertension, Heart disease, Auto-immune disorder, Kidney disease/UTI, Neurologic/epilepsy, Psychiatric, Depression/ depression, Hepatitis/liver disease, Varicosities/phlebitis, Thyroid dysfunction, Trauma/domestic violence, History of blood transfusions, D (Rh) Sensitized, Pulmonary (e.g.,TB,Asthma), Drug/latex allergies/reactions, Breast, Senior Applications Developer surgery, Anesthetic complications, History of abnormal pap, Uterine anomaly/lucy, Infertility, Anti-retroviral treatment, Relevant family history, Other ACOG First Trimester First Trimester: Desire for , Intimate Partner Violence, Barriers to care, Communication Barriers, Environmental/Work Hazards, Anticipated Course of Care, Nurtrition and weight gain, Use of Any medications, Sexual activity, Exercise, Dental Care, Sauna/Hot tub use, Seat Belt use, Childbirth classes/Hospital facilities, , Travel, Indications for US and Screening for Aneuploidy; discussed Alcohol, discussed Tobacco Cessation, discussed Illicit/Recreational Drug/Substance Use, discussed Unstable Housing or discussed Toxoplasmosis Precations ROS Const Reports as per HPI Card Denies chest pain, Denies shortness of breath Resp Denies shortness of breath GI Denies change in stools Denies difficulty urinating, Denies abnormal vaginal bleeding, Denies vaginal odor, Denies vaginal itching, Denies vaginal discharge Exam Const General: cooperative, healthy appearing, well developed Nutritional Appearance: average body habitus, well nourished Orientation: oriented x3 Neck Neck: normal visual inspection Neck mass: No Thyroid: thyroid normal Chest Chest palpation AND inspection: normal inspection of the chest Breast inspection: normal inspection of the breasts, normal inspection of the axillae Resp Effort AND Inspection: normal respiratory effort GI Inspection: normal to inspection Palpation: soft, nontender, no masses External Female Exam: normal external appearance, normal appearance of the urethra Urethra: normal appearance of the urethra Speculum Exam - Vagina: normal appearance of the vagina, abnormal vaginal discharge (large amount yellow discharge, slight odor. ) Speculum Exam - Cervix: normal appearance of the cervix, closed cervix, other ( GCC collected, HERMINIO BV and trich collected) Bimanual Exam- Vagina AND Uterus: normal bimanual exam, uterine shape normal, uterine size normal (10 weeks) Bimanual Exam- Adnexa, other: normal adnexae, no adnexal masses, adnexae non-tender Skin General: no rashes or lesions noted, turgor normal Assessment AND Plan Problems 1. Supervision of other normal Z34.80 2. 9 weeks gestation of Z3A.09 Plan Patient oriented to practice and discussed care expectations and screenings. ACOG book offered to patient. labs and 19-20 week anatomy ultrasound ordered Genetic screening offered to patient and patient chose: undeiceded RTO tomorrow for dating US Dr. Bertrand Routine OB in 4 weeks. Orders Orders: Medications New: Results POCTRICVAG Office Trichomonas vaginalis Negative Last Edit by Jasmin Rios on 09/02/17 14:49 POCBVBLUE Office BVBlue Test Negative Last Edit by Jasmin Rios on 09/02/17 14:49 Coding Level of Care Code Off vis,new,level 4 Diagnoses Supervision of other normal Z34.80 9 weeks gestation of Z3A.09 09/02/17 1512 <Electronically signed by Radha GRANADOS> Date Radha GRANADOS Cosigner Signature: Date (if applicable) CC: CBC W/DIFF, AUTOMATED Collected: 09/02/2017 Status: F Source: JANNA 2:12 PM [facility] REPOSITORY TYPE CODE TESTS RESULT OUT OF RANGE REFERENCE UNITS LAB L100.1000 4.4-11.0 K/mm3 Normal WBC 8.9 LAB L100.1200 4.2-5.4 M/mm3 Low RBC 4.01 LAB L100.1300 12.0-15.0 g/dl Normal HGB 12.6 LAB L100.1400 37-47 % Low HCT 36.7 LAB L100.1500 81-99 fL Normal MCV 91.5 LAB L100.1600 27.0-32.0 pg Normal MCH 31.4 LAB L100.1700 32-36 g/gl Normal MCHC 34.3 LAB L100.1810 11.6-14.6 % Normal RDW CV 12.2 LAB L100.1820 35.1-43.9 fl Normal RDW SD 40.1 LAB L100.1900 150-450 K/mm3 Normal PLT 165 LAB L100.2000 6.2-12.0 fl High MPV 13.7 LAB L100.2100 47-70 % High NEUT% 76.5 LAB L100.2200 19-41 % Low LY% 15.8 LAB L100.2300 0-10 % Normal MONO% 6.8 LAB L100.2400 0-5 % Normal EO% 0.6 LAB L100.2500 0-1 % Normal BASO% 0.1 LAB L100.2550 0.0-0.9 % Normal IM GRAN % 0.200 Result Comment: IG% - Immature Granulocytes (promyelocytes, myelocytes and metamyelocytes) > 1% indicates that a LEFT SHIFT is Present. LAB L100.2620 2.0-7.7 X10 3/uL Normal Absolute Neut 6.8 LAB L100.2720 0.83-4.51 X10 3/ul Normal Absolute Lymph 1.40 Performed By: #### L100.0100, B101.7450 #### [facility] [address] [place], [address] #### L3100.0390 #### [facility] (refer to report for specific site) refer to report for address and phone number TYPE AND SCREEN Collected: 09/02/2017 Status: F Source: JANNA 2:12 PM [facility] REPOSITORY Order Comment: Reason for Type AND Screen/Red Cells: TYPE CODE TESTS RESULT OUT OF RANGE REFERENCE UNITS LAB B10.0800 O Normal BLOOD TYPE GEL POSITIVE LAB B100.4000 Normal Antibody NEGATIVE Screen Performed By: #### L100.0100, B101.7450 #### [facility] [facility] [address] #### L3100.0390 #### [facility] (refer to report for specific site) refer to report for address and phone number HEPATITIS B SURFACE Collected: 09/02/2017 Status: F Source: JANNA AG 2:12 PM [facility] REPOSITORY TYPE CODE TESTS RESULT OUT OF RANGE REFERENCE UNITS LAB L3100.0400 Negative Normal HB Negative SURF AG Result Comment: Performed at: [address] [id number] Pit Hoist Operator: Aniket Palomo PhD, Phone: [phone] Performed By: #### L100.0100, B101.7450 #### [place] [id number] #### L3100.0390 #### [facility] (refer to report for specific site) refer to report for address and phone number RAPID PLASMIN REAGIN Collected: 09/02/2017 Status: F Source: JANNA (RPR) 2:12 PM [facility] REPOSITORY TYPE CODE TESTS RESULT OUT OF REFERENCE UNITS RANGE LAB L700.5000 NONREACTIVE NONREACTIVE Normal RPR Performed By: #### L700.5000, L509.4000, L3890.6005 #### [facility] [address] [place], [place] [address] RUBELLA IGG Collected: 09/02/2017 Status: F Source: JANNA 2:12 PM [facility] REPOSITORY TYPE CODE TESTS RESULT OUT OF RANGE REFERENCE UNITS LAB L509.4000 IU/mL Normal Rubella IgG 163.9 Result Comment: Antibody results Interpretation of Immune Status < 5 IU/ml Presumed Non-immune 5 - < 10 IU/ml Equivocal > or = 10 IU/ml Presumed Immune Performed By: #### L700.5000, L509.4000, L3890.6005 #### [facility] [address] [place] [address], [place], [address] HIV - [facility] Collected: 09/02/2017 Status: F Source: UKIAH 2:12 PM [facility] REPOSITORY TYPE CODE TESTS RESULT OUT OF RANGE REFERENCE UNITS LAB L3890.6005 Nonreactive Normal HIV - [facility] Non-Reactive Performed By: #### L700.5000, L509.4000, L3890.6005 #### [facility] [address] [place], [address] ALLERGIES ALLERGIES DATE TYPE / CODE NAME / CODE REACTION SEVERITY SOURCE 04/06/2018 Drug gluten/[id number] Diarrhea Unknown [facility] Allergy/416 7(RXNORM) Hospital 683681(SNOM Repository ED CT) 04/04/2018 Drug No Known Unknown [facility] Allergy/416 Allergies/Q09354 Hospital 269773(SNOM 0388(RXNORM) Repository ED CT) Drug/235117 No Known [facility] 003(SNOMED Allergies Merged With [facility] CT) System Repository ENCOUNTERS ENCOUNTERS ADMIT/DISCHARGE ACCOUNT NUMBER ADMITTING ENCOUNTER LOCATION SOURCE CLASS 04/06/2018/04/07/20 [id number] Jerzy, Inpatient [facility] 18 [facility] ding:WPRoom: Repository PQ901Dvq: 1 04/06/2018 [id number] Jerzy Ambulatory BMSBuilding: Janna Melissa BMS.CF.[facility] Repository 04/06/2018 [id number] Jerzy Ambulatory BMSBuilding: [place] Melissa BMS.CF.[facility] Repository 04/04/2018/04/04/20 [id number] Ambulatory BMSBuilding: [place] 18 [facility] Repository 03/29/2018/03/29/20 [id number] Ambulatory BMSBuilding: [place] 18 [facility] Repository 03/23/2018/03/23/20 [id number] Ambulatory BMSBuilding: [place] 18 [facility] Repository 03/16/2018/03/16/20 [id number] Ambulatory BMSBuilding: [place] 18 BMS.[facility] Repository 03/09/2018 [id number] Ambulatory [facility] ding:[facility] Repository 03/09/2018/03/09/20 [id number] Ambulatory BMSBuilding: [place] 18 BMS.[facility] Repository 02/23/2018/02/24/20 [id number] Ambulatory BMSBuilding: [place] 18 BMS.[facility] Repository 02/09/2018 [id number] Ambulatory [facility] ding:[facility] Repository 02/09/2018/02/10/20 [id number] Ambulatory BMSBuilding: [place] 18 BMS.[facility] Repository 01/26/2018/01/27/20 [id number] Ambulatory BMSBuilding: [place] 18 BMS.[facility] Repository 01/25/2018/01/26/20 [id number] [facility] Viraj Watson g:[facility]: [address] System Repository 01/12/2018 [id number] Ambulatory [facility] ding:LAB Repository 01/12/2018/01/13/20 [id number] Ambulatory BMSBuilding: [place] 18 BMS.[facility] Repository 01/05/2018/01/06/20 [id number] [place] [address] [address] [facility] ding:[facility] System Repository 01/05/2018/01/06/20 [id number] [facility] 18 Viraj Watson g:[facility] Repository 01/05/2018 [id number] Ambulatory [address] [place] [address] Repository 12/24/2017/12/25/19 [id number] Ambulatory BMSBuilding: [place] 18 BMS.[facility] Repository 12/22/2017 [id number] Ambulatory [facility] ding:[facility] Repository 12/22/2017/12/23/19 [id number] Ambulatory BMSBuilding: [place] 18 BMS.[facility] Repository 12/22/2017 [id number] Ambulatory [facility] ding:[facility] Repository 11/26/2017 [id number] Ambulatory [facility] ding:[facility] Repository 11/26/2017/11/27/19 [id number] Ambulatory BMSBuilding: [place] 18 BMS.[facility] Repository 11/08/2017 [id number] Ambulatory [facility] ding:OPUS Repository 10/29/2017/10/30/19 [id number] Ambulatory BMSBuilding: [place] 18 BMS.[facility] Repository 10/01/2017/10/02/19 [id number] Ambulatory BMSBuilding: [place] 18 BMS.[facility] Repository 09/03/2017/09/04/19 [id number] Ambulatory BMSBuilding: [place] 18 BMS.[facility] Repository 09/02/2017 [id number] Ambulatory [facility] ding:OPUS Repository 09/02/2017 [id number] Ambulatory [facility] ding:POLAB3 Repository 09/02/2017/09/03/19 [id number] Ambulatory BMSBuilding: [place] 18 BMS.[facility] Repository PAYERS PAYERS ENCOUNTER GUARANTOR PAYER SUBSCRIBER SOURCE 04/06/2018 REINIER A Primary Insurance:MED REINIER A [place] [id number] TR [facility] [address], Number: [id number] [address]Leg: [id number] Repository Date:2461-85-79GL [address] () [address], [place] [address]ZT: CHECK WEBSITE 04/06/2018 Secondary NOT GIVENUNK [place] Insurance:SELF PAY [facility] Number: Effective Repository Date:2018-04-06 04/06/2018 REINIER A Primary Insurance:MED REINIER A [place] [id number] TR [facility] [address], Number: [id number] [facility] Rehabilitation Center [address]Qur: [id number] Repository Date:4826-34-27QH [address]OX () [address], [place] [address]HR: CHECK WEBSITE 04/06/2018 Secondary NOT GIVENUNK Janna Insurance:SELF PAY [facility] Number: Effective Repository Date:2018-04-06 04/06/2018 REINIER A Primary Insurance:MED REINIER A [place] [id number] TR [employer] TPAP[employer] WEIDRICKDOB: [address], Number: [id number] Mexico Rehabilitation Center [address]Epq: [id number] Repository Date:0726-01-59OD [address]OX () [address], [place] [address]CT: CHECK WEBSITE 04/06/2018 Secondary NOT GIVENUNK Janna Insurance:SELF PAY [facility] Number: Effective Repository Date:2018-04-06 04/04/2018 REINIER A Primary Insurance:MED REINIER A [place] [id number] TR [employer] TPAPol[employer] WEIDRICKDOB: [address], Number: [id number] [facility] Rehabilitation Center [address]Owr: [id number] Repository Date:8964-76-09YI BOX () [address]PRSK, [place] [address]ZF: CHECK WEBSITE 04/04/2018 Secondary NOT GIVENUNK [place] Insurance:SELF PAY [facility] Number: Effective Repository Date:2018-04-04 03/29/2018 REINIER A Primary Insurance:MED REINIER A [place] [id number] TR [employer] TPAP[employer] WEIDRICKDOB: [address], Number: [id number] [facility] Rehabilitation Center [address]Idz: [id number] Repository Date:2088-33-68IP BOX () [address]QL[place], [place] [address]VI: CHECK WEBSITE 03/29/2018 Secondary NOT GIVENUNK Janna Insurance:SELF PAY [facility] Number: Effective Repository Date:2018-02-02 03/23/2018 REINIER A Primary Insurance:MED REINIER A [place] [id number] TR [employer] TPAPol[employer] WEIDRICKDOB: [address], Number: [id number] Mexico Rehabilitation Center [address]Bnr: [id number] Repository Date:9388-71-54WJ BOX () [address], [place] [address]DR: CHECK WEBSITE 03/23/2018 Secondary NOT GIVENUNK Deforest Insurance:SELF PAY [facility] Number: Effective Repository Date:2018-03-23 03/16/2018 REINIER A Primary Insurance:MED REINIER A Deforest [id number] TR MUTUAL TPAPolicy WEIDRICKDOB: [address], Number: [id number] Mexico Rehabilitation Center [address]Vmf: [id number] Repository Date:4298-34-69QB [address] () 42974VWIXHRBDL, [place] [address]WX: CHECK WEBSITE 03/16/2018 Secondary NOT GIVENUNK Janna Insurance:SELF PAY [facility] Number: Effective Repository Date:2018-01-28 03/09/2018 REINIER A Primary Insurance:MED REINEIR A Deforest [id number] TR MUTUAL TPAPolicy WEIDRICKDOB: [address], Number: [id number] [facility] Rehabilitation Center [address]Qch: [id number] Repository Date:6026-22-75WQ [address]OX () 78247OBTRGHOCV, [place] [address]QL: CHECK WEBSITE 03/09/2018 Secondary NOT GIVENUNK Janna Insurance:SELF PAY [facility] Number: Effective Repository Date:2018-03-09 03/09/2018 REINIER A Primary Insurance:MED REINIER A Janna [id number] TR MUTUAL TPAPolicy WEIDRICKDOB: [address], Number: [id number] [facility] Rehabilitation Center [address]Jnw: [id number] Repository Date:5157-49-66JN [address]OX () [address]HPEYAUYFJ, [place] [address]NZ: CHECK WEBSITE 03/09/2018 Secondary NOT GIVENUNK Deforest Insurance:SELF PAY [facility] Number: Effective Repository Date:2018-03-09 02/23/2018 REINIER A Primary Insurance:MED REINIER A Deforest [id number] TR MUTUAL TPAPolicy WEIDRICKDOB: [address], Number: [id number] [facility] Rehabilitation Center [address]Byz: [id number] Repository Date:4738-14-46ZG BOX () 66822ZNXTSGIUX, [place] [address]HY: CHECK WEBSITE 02/23/2018 Secondary NOT GIVENUNK Janna Insurance:SELF PAY [facility] Number: Effective Repository Date:2018-02-23 02/09/2018 REINIER A Primary Insurance:MED REINIER A Janna [id number] TR MUTUAL TPAPolicy WEIDRICKDOB: [address], Number: [id number] Mexico Rehabilitation Center [address]Zil: [id number] Repository Date:3362-32-31VI [address] () [address]ENMNBRCJX, [place] [address]FW: CHECK WEBSITE 02/09/2018 Secondary NOT GIVENUNK Deforest Insurance:SELF PAY [facility] Number: Effective Repository Date:2018-02-09 02/09/2018 REINIER A Primary Insurance:MED REINIER A Janna [id number] TR MUTUAL TPAPolicy WEIDRICKDOB: [address], Number: [id number] Mexico Rehabilitation Center [address]Dza: [id number] Repository Date:4871-64-06LY [address]OX () 80233FDZBUYDBY, [place] [address]TB: CHECK WEBSITE 02/09/2018 Secondary NOT GIVENUNK Deforest Insurance:SELF PAY [facility] Number: Effective Repository Date:2018-01-26 01/26/2018 REINIER A Primary Insurance:MED REINIER A Deforest [id number] TR MUTUAL TPAPolicy WEIDRICKDOB: [address], Number: [id number] Mexico Rehabilitation Center [address]Hgf: [id number] Repository Date:2563-78-54GF [address] () 47403PFQSWHLCK, [place] [address]LP: CHECK WEBSITE 01/26/2018 Secondary NOT GIVENUNK Deforest Insurance:SELF PAY [facility] Number: Effective Repository Date:2018-01-12 01/25/2018 JEANNE Bonner Primary REINIER Cynthia BeyAnglican LEIGHAB: Insurance:1500 WEIDRICKDOB: Merged With [facility] MEDICAL MUTUALPolicy [id number] Number: Effective [address] Repository [address] [place] [address], Date:2018-01-25 - [address] [place] [address]Enu: [id number] [place] [address]Rtj: Name:CD:[id number] O (HP) [address], [place] (HP)Tel: [phone]) [phone]: ([phone] 01/12/2018 REINIER A Primary Insurance:MED REINIER A Deforest [id number] TR [facility]PolSim[facility] HospitalDOB: [address], Number: [id number] Mexico Rehabilitation Center [address]Vcw: [id number] Repository Date:0630-32-69LT [address] () [address]246BRJQNUNAP, [place] [address]GH: CHECK WEBSITE 01/12/2018 Secondary NOT GIVENUNK Janna Insurance:SELF PAY [facility] Number: Effective Repository Date:2018-01-12 01/12/2018 REINIER A Primary Insurance:MED REINIER A Deforest [id number] TR [facility]ITALPolicy [facility]ENTERDRICKDOB: [address], Number: [id number] Mexico Rehabilitation Center [address]Brj: [id number] Repository Date:8897-56-60FD [address] () 01183EHOCXUDGZ, [place] [address]FU: CHECK WEBSITE 01/12/2018 Secondary NOT GIVENUNK Deforest Insurance:SELF PAY [facility] Number: Effective Repository Date:2018-01-12 01/05/2018 JEANNE Bonner Primary REINIER Cynthia BeyAnglican LEIGHAB: Insurance:Medical WEIDRICKDOB: [facility] Number: [id number] Effective [address] Repository [address] [place], [place] [address], Date:2018-01-05 - [facility] [address]Jyc: [id number] [place] [address]Hmp: Name:[facility] () [address]WUXRSLMTY, ()Tel: (000) [place] [address]YZ: [phone] (WP) [id number] 01/05/2018 JEANNE Bonner Primary [facility]: Insurance:[address] [place], [place] [address]DRTHEDACARE MEDICAL CENTER SHAWANOB: M[facility] With [facility] [id number] Number: Effective [address] Repository [facility]Cross [facility], Date:2018-01-05 - [facility] [place] [address]Izb: [id number] [place] [address]Brk: Name::[id number] O () [address] [place] [address] ()Tel: 000) [address]WP: (WP) [phone] 01/05/2018 [facility]NE Bonner [facility] [id number] Repository [address] Number: [facility], [id number] [place] [address]Uwb: Date:Plan Name:Health () 01/05/2018 [facility]:Medical [facility]: [facility] [id number] Repository Number: [address] [id number] [address] [place] [address], Date:Plan Name:Health [place] [address]Hnn: () 12/24/2017 REINIER Marie Primary Insurance:MED REINIER A [address]: [address], Number: [id number] [facility] [place] [address]Mgh: [id number] Repository Date:3238-33-97WC [address] () [address]CGXCLNWYQ, [place] [address]ME: CHECK WEBSITE 12/24/2017 Secondary NOT GIVENUNK Deforest Insurance:SELF PAY [facility] Number: Effective Repository Date:2017-12-24 12/22/2017 Jeanne R Primary NOT GIVENUNK Deforest [id number] TR Insurance:SELF PAY [address] [address]Vht: Number: Effective Repository Date:2017-12-22 (HP) 12/22/2017 REINIER A Primary Insurance:MED REINIER A Janna [id number] TR MUTUAL TPAPolicy WEIDRICKDOB: [address], Number: [id number] Mexico Rehabilitation Center [address]Vyf: [id number] Repository Date:0586-48-64OY [address] () 43082QBPIBEDPT, [place] [address]CB: CHECK WEBSITE 12/22/2017 Secondary NOT GIVENUNK Janna Insurance:SELF PAY [facility] Number: Effective Repository Date:2017-12-22 12/22/2017 REINIER A Primary Insurance:MED REINIER A Janna [id number] TR MUTUAL TPAPolicy WEIDRICKDOB: [address], Number: [id number] Mexico Rehabilitation Center [address]Zzl: [id number] Repository Date:7508-04-00WU [address]OX () 32177LSSAFSELI, [place] [address]XD: CHECK WEBSITE 12/22/2017 Secondary NOT GIVENUNK Janna Insurance:SELF PAY [facility] Number: Effective Repository Date:2017-12-22 11/26/2017 REINIER A Primary Insurance:MED REINIER A Janna [id number] TR MUTUAL TPAPolicy WEIDRICKDOB: [address], Number: [id number] Mexico Rehabilitation Center [address]Tgb: [id number] Repository Date:4518-27-31ZO [address]OX () 16826QZLNUOPIA, [place] [address]PB: CHECK WEBSITE 11/26/2017 Secondary NOT GIVENUNK Janna Insurance:SELF PAY [facility] Number: Effective Repository Date:2017-11-26 11/26/2017 REINIER A Primary Insurance:MED REINIER A Deforest [id number] TR MUTUAL TPAPolicy WEIDRICKDOB: [address], Number: [id number] Mexico Rehabilitation Center [address]Jyg: [id number] Repository Date:6760-50-80GL BOX (HP) [address]58RALPNVLPK, [place] [address]WF: CHECK WEBSITE 11/26/2017 Secondary NOT GIVENUNK Deforest Insurance:SELF PAY [facility] Number: Effective Repository Date:2017-11-26 11/08/2017 REINIER A Primary Insurance:MED REINIER A Deforest [id number] TR MUTUAL TPAPolicy WEIDRICKDOB: [address], Number: [id number] Mexico Rehabilitation Center [address]Awu: [id number] Repository Date:9405-22-92VF [address]OX () 08744LEJXQIGUI, [place] [address]ZJ: CHECK WEBSITE 11/08/2017 Secondary NOT GIVENUNK Deforest Insurance:SELF PAY [facility] Number: Effective Repository Date:2017-11-08 10/29/2017 REINIER A Primary Insurance:MED REINIER A Janna [id number] TR MUTUAL TPAPolicy WEIDRICKDOB: [address], Number: [id number] Mexico Rehabilitation Center [address]Rkn: [id number] Repository Date:7580-32-98TF [address]OX () 66911RQKQBTHKY, [place] [address]PP: CHECK WEBSITE 10/29/2017 Secondary NOT GIVENUNK Deforest Insurance:SELF PAY [facility] Number: Effective Repository Date:2017-10-29 10/01/2017 REINIER A Primary Insurance:MED REINIER A Deforest [id number] TR MUTUAL TPAPolicy WEIDRICKDOB: [address], Number: [id number] Mexico Rehabilitation Center [address]Ped: [id number] Repository Date:3036-39-72LA [address]OX () 70956URSCCCTZY, [place] [address]QE: CHECK WEBSITE 10/01/2017 Secondary NOT GIVENUNK Deforest Insurance:SELF PAY [facility] Number: Effective Repository Date:2017-10-08 09/03/2017 REINIER A Primary Insurance:MED REINIER A Janna [id number] TR MUTUAL TPAPolicy WEIDRICKDOB: Community [address] [place] [address], Number: [id number] Mexico Rehabilitation Center [address]Iae: [id number] Repository Date:2758-09-40KU [address]OX () 76841YCTRTRPYC, [place] [address]YI: CHECK WEBSITE 09/03/2017 Secondary NOT GIVENUNK Janna Insurance:SELF PAY [facility] Number: Effective Repository Date:2017-09-03 09/02/2017 REINIER A Primary Insurance:MED REINIER A Deforest [id number] TR MUTUAL TPAPolicy WEIDRICKDOB: [address], Number: [id number] Mexico Rehabilitation Center [address]Ezh: [id number] Repository Date:0233-66-94UK BOX () 03682BBGVUUFJB, [place] [address]KT: CHECK WEBSITE 09/02/2017 Secondary NOT GIVENUNK Janna Insurance:SELF PAY [facility] Number: Effective Repository Date:2017-09-02 09/02/2017 REINIER A Primary Insurance:MED REINIER A Janna [id number] TR MUTUAL TPAPolicy WEIDRICKDOB: [address], Number: [id number] Mexico Rehabilitation Center [address]Myp: [id number] Repository Date:9305-98-16JI [address]OX () 49730PQXOWVSXP, [place] [address]KC: CHECK WEBSITE 09/02/2017 Secondary NOT GIVENUNK Janna Insurance:SELF PAY [facility] Number: Effective Repository Date:2017-09-02 09/02/2017 REINIER A Primary Insurance:MED REINIER A Deforest [id number] TR [facility] IZABELLADOB: [address], Number: [id number] Mexico Rehabilitation Center [address]Xdo: [id number] Repository Date:9793-55-79JM BOX (YY) 882261305NMFTYKZUQ, [place] [address]HK: CHECK WEBSITE 09/02/2017 Secondary NOT GIVENNANNETTE Saldivar Insurance:SELF PAY [facility] Number: Effective Repository Date:2017-09-02
== END 2018-04-07 20:30 | disposition home or self-care (01) | DRG 807 ==
PROVIDERS: Anesthesiology; Admitting Provider Obstetrics & Gynecology; Referring Provider Obstetrics & Gynecology; Visit Provider Obstetrics & Gynecology
DX: O48.0 Post-term pregnancy (principal); Z37.0 Single live birth; Z3A.40 40 weeks gestation of pregnancy
CPT/HCPCS: 59025; 59050; 85027; 86850; 86900; 99218; J7120; G0378

== ENCOUNTER → 2019-10-26 | Outpatient (CLI) | payer OTHER, SELFPAY ==
[2019-10-26 11:33] VITALS: BMI 29.6
[2019-11-02 05:36] LABS: HPV APTIMA, High Risk Negative (Negative)
== END | disposition home or self-care (01) ==
LOC: LABSPEC 16:32
PROVIDERS: Referring Provider Obstetrics & Gynecology; Visit Provider Obstetrics & Gynecology
DX: Z12.4 Encounter for screening for malignant neoplasm of cervix (principal)
CPT/HCPCS: 87624; 88175; G0145

== ENCOUNTER 2021-02-25 18:19 | Outpatient (CLI) | payer OTHER, MEDICAID, SELFPAY ==
[2021-02-25 18:35] VITALS: BP 124/87; PULSE 99; RESP 16; TEMP 36.7; O2SAT 98; BMI 23.1
[2021-02-25] MEDS: 0.9% Saline Lock 10 ML Syringe IV (18:53)
[2021-02-25 19:25] VITALS: BP 113/67; PULSE 94; RESP 16; TEMP 36.6; O2SAT 100
[2021-02-25 20:15] VITALS: BP 112/72; PULSE 87; RESP 16; TEMP 36.7; O2SAT 100
== END 2021-02-25 20:25 | disposition home or self-care (01) ==
LOC: MS3OUT 18:24 → MS3 18:25
PROVIDERS: Referring Provider Nurse Practitioner Adult Health; Visit Provider Nurse Practitioner Adult Health
DX: Z23 Encounter for immunization (principal); U07.1 COVID-19
CPT/HCPCS: J7050; M0245; Q0245; A4216

== ENCOUNTER → 2022-09-01 | Outpatient (CLI) | payer BC, MEDICAID, SELFPAY ==
--- NOTE | 2022-09-01 16:10 | US_ITS ---
INDICATION: Abnormal uterine bleeding EXAMINATION: US Pelvis Non OB Complete With Transvaginal Imaging TECHNIQUE: Transabdominal and transvaginal pelvic ultrasound was performed. Grayscale, spectral waveform, and color flow Doppler evaluation of the adnexa. COMPARISON: None. FINDINGS: UTERUS: Anteverted. The uterus measures 9.5 x 4 x 5.9 cm. There is no demonstrated uterine mass. Transvaginal, endometrial stripe measures 4.4 mm in AP diameter which is within normal limits. Small cervical nabothian cysts noted. RIGHT OVARY: Transvaginally, right ovary measures 3.5 x 1.7 x 1.9 cm. Non-enlarged, normal echogenicity. There is normal arterial inflow and venous outflow present in the right ovary. There are few ovarian follicles but no large or complex cyst. LEFT OVARY: Transvaginally, left ovary measures 3.2 x 2.4 x 2.7 cm. Non-enlarged, normal echogenicity. There is normal arterial inflow and venous outflow present in the left ovary. There are few ovarian follicles but no large or complex cyst. FREE FLUID: Small amount of free fluid within posterior cul-de-sac. US/Pelvic w/ Transvaginal IMPRESSION: 1. Small amount of free pelvic fluid 2. Sonographic appearance of uterus and ovaries within normal limits Electronically Signed: Edenilson Stiles MD at 8:00 EDT ,
== END | disposition home or self-care (01) ==
LOC: US 16:07
PROVIDERS: Referring Provider Registered Nurse; Visit Provider Registered Nurse
DX: N92.6 Irregular menstruation, unspecified (principal)
CPT/HCPCS: 76830; 76856

== ENCOUNTER → 2023-04-02 | Outpatient (CLI) | payer BC, MEDICAID, SELFPAY ==
--- NOTE | 2023-04-02 09:29 | BI_ITS ---
MAMMOGRAPHY - BILATERAL DIAGNOSTIC REASON FOR EXAM: Female, 37 years old. Pain/pressure in the upper outer quadrant of the right breast. PERTINENT HISTORY: Non-contributory. TECHNIQUE: Digital bilateral breast alfred (3D mammographic acquisition) in the CC and MLO projections. 2-D mediolateral oblique (MLO) and craniocaudad (CC) views of both breasts were obtained. CAD: Full Field Digital Mammography with Computer Added Detection was performed. COMPARISON: None. Baseline examination. FINDINGS: Breast Composition: The breasts are heterogeneously dense, which may obscure small masses. There are no dominant masses or suspicious calcifications. No other significant abnormalities are identified. BI/DIAG MAMM W/CAD, BILAT IMPRESSION: Negative diagnostic mammogram. With the patient''s history of pain/pressure in the upper-outer quadrant of the right breast, correlation with ultrasound is recommended. ASSESSMENT CATEGORY: BIRADS Category 0: Incomplete. Need additional imaging evaluation. A letter regarding these results will be sent to the patient by the facility within 30 days. Approximately 10% of breast cancers are not detected by mammography. A normal mammogram should not delay biopsy of a clinically suspicious abnormality. Electronically Signed: Mychal Medley MD at 10:46 EST ,
--- NOTE | 2023-04-02 09:29 | US_ITS ---
STUDY: ULTRASOUND BREAST - RIGHT REASON FOR EXAM: Female, 37 years old. Right lateral breast pain/pressure. TECHNIQUE: Axial and longitudinal images of the RIGHT breast were performed with a high resolution ultrasound transducer. # OF IMAGES: 26 COMPARISON: Comparison is made with prior mammogram done earlier today. FINDINGS: RIGHT Breast: The lateral half of the right breast was examined with ultrasound. No sonographic abnormality is seen. US/Breast Limited Unilateral IMPRESSION: No sonographic abnormality is seen. ASSESSMENT CATEGORY: BIRADS Category 1: Negative. A letter regarding these results will be sent to the patient by the facility within 30 days. Electronically Signed: Mychal Medley MD at 13:52 EST ,
== END | disposition home or self-care (01) ==
PROVIDERS: Referring Provider Advanced Practice Midwife; Visit Provider Advanced Practice Midwife
DX: N64.4 Mastodynia (principal)
CPT/HCPCS: 76642; 77062; 77066; G0279

== ENCOUNTER 2023-05-21 08:30 | Outpatient (RCR) | payer BC, MEDICAID, SELFPAY ==
--- NOTE | 2023-04-20 12:54 | HP.PTEVAL ---
Patient's Visit Information Visit Information Visit Information: JEANNE PAREKH is a 37 year old F referred to Physical Therapy by Dr. Hilario Young MD with a diagnosis of Left Knee Pain. Date of Evaluation: 04/20/23 Physical Therapist: Estephanie Verdugo DPT Visit Plan Frequency: 2x /Week Duration: 4 Weeks Plan: Focus on LE and core strength/stabilization (MRI scheduled next week possible ACL tear) Subjective Subjective: Past year she has noticed pain in her left knee- ACL and meniscus when she was 14- basketball- 11th grade [employer] went back in clean up- to get her through- started to bother her in college- she continued to work out- the past year it has been really rough- grinding- popping- pain. Days that it wakes her in the middle of the night. Standing and being on her feet all day she had a hard time sleeping. Sometimes it swells and aches. She has an MRI next week to see if the MRI is still holding. She is planning to have it repaired if it needs it. Worst: 10/03 Agg: being on her feet- squatting. Eases: Ibuprofen, elevation, ice, heat. The pain is located in the medial knee and along the whole knee. Does radiate to the front of the garcia to the ankle. Dull and achy and sharp and shooting. Sleep: hard to get to sleep and wakes her up. Does not currently work out. 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 Objective Objective: Posture: Forward head, rounded shoulder can correct with verbal cues Gait: no deviation noted Edema: none noted ROM: 0-130 degrees with pain at end range Flex: HS: moderate, Gastroc: moderate Palpation: tender along medial joint line and superior patella Strength: Core: poor, Hip: IR/ER: 4-/5, Flexion: 4/5, Abd: 4/5, Add: 4+/5, Knee: Extn Left: 49.7 Right: 55 Flexion: Left: 32 Right: 43 Ankle: 5/5 Special Tests L Knee Iftikhar - Meniscus: Positive L Knee Apley - Meniscus: Positive L Knee Pretty - ACL: Positive L Knee Anterior Drawer - ACL: Positive Balance/Special Test Scores Lower Extremity Functional Score: 63 Goals Goal 1:: Patient will report participation in home exercise program activities a minimum of 5 days per week, as adjunct to skilled physical therapy intervention in preparation for independent home management upon discharge. Goal Time Frame: 4-6 Weeks Goal 2:: Patient will report an increase of 9 points on the LEFS to show minimal clinical significant difference on patients functional outcome measure. Goal Time Frame: 4-6 Weeks Goal 3:: Patient will demo equal strength bilateral LE Goal Time Frame: 4-6 Weeks Goal 4:: Patient will report 80% improvement Goal Time Frame: 4-6 Weeks Rehabilitation Potential Physical Therapy Diagnosis: Patient presents with hypomobility she has decreased pain free strength/stabilization, flex, proprioception and muscular endurnace Rehabilitation Potential: Excellent Anticipated Interventions Patient/Client Instruction: Educate patient on: Benefits of Fitness Program Therapeutic Exercise to Include: Strength training, Endurance training, Balance training, Coordination, Agility training, Body mechanics, Postural training, Flexibilty training, Gait and locomotor training, Neuromotor development, Dynamic Lumbar Stabilization and Scapular Strength/Stabilization TENS: Yes Cryotherapy (ice pack, ice massage): Yes Thermo therapy (hot pack): Yes Text: Thank you for the opportunity to evaluate your patient. For Medicare and Medicare HMO plans, please review the plan of care and approve it. It will need to be FAXED BACK to us at [phone] for Medicare purposes. For Medicare only, by signing this I certify the plan of care. Please let me know if there are questions or concerns regarding this plan of care. Physician Signature: Date:
--- NOTE | 2023-06-03 14:00 | HP.PTDCSUM ---
Discharge Summary D/C summary: It has been my pleasure to treat JEANNE PAREKH referred by Dr. Hilario Young MD, with the diagnosis of Left Knee Pain for a total of 7 visit(s). Discharge Date: 05/21/23 Please see the following information for a summary of their discharge status. Subjective Subjective: Pt reports her hip strength has improved, but knee pain remains unchanged. Pt is still having grinding, popping, and has feelings of knee giving out. Squatting and biking causing the most pain, worst 6 or 7/10 and pain never gets down to 0. 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 Carrying laundry basket down the stairs to laundry in basement increases pain but pt must perform multiple times per week. Has f/u with Dr. Young next week to discuss further imaging. Pain L knee: Pain Intensity (Out of 10): 0 Overall Improvement % Improvement: 25 Objective Objective/Function: MMT: Knee - meghan ext 22.4, L flex 28 and R 30 Hip - L ext 55, R ext 45, L ABD 58, R 53 ROM: L knee flex 140, ext 0 JOINT PLAY: normal L patellar, some pain and clicking with medial glide Pt. is still having a decent amount of pain with getting down on to floor, squatting, . Pt. does work in a school where she has to squat a lot and this becomes very irritating. She at this point in time would like to follow up with her physician to determine best course of action. She reports feeling stronger, but not much has changed with her pain. Goals Goal 1:: Patient will report participation in home exercise program activities a minimum of 5 days per week, as adjunct to skilled physical therapy intervention in preparation for independent home management upon discharge. Goal Progress: PARTIALLY MET Goal 2:: Patient will report an increase of 9 points on the LEFS to show minimal clinical significant difference on patients functional outcome measure. Goal Progress: NOT MET Goal 3:: Patient will demo equal strength bilateral LE Goal Progress: PARTIALLY MET Goal 4:: Patient will report 80% improvement Goal Progress: NOT MET Plan Plan: Discharge pt back to physician for further imaging D/C Information Discharge Comments: Pt. was seen in PT for her L knee pain. Pt. was treated with hip and knee musculature strengthening. She reports being stronger but not much has changed in terms of her pain. Pt. would like to go back to physician to determine best course of action at this point in time. d/c sentence: If there are questions or concerns regarding this patient's physical therapy, please feel free to call me at [phone]. Thank you for the referral of this patient. Sincerely, [place] Lu, DPT Balance/Gait/Functional tests Balance/Special Test Scores Lower Extremity Functional Score: 64 Improvement % Improvement: 25
== END 2023-05-21 19:00 | disposition home or self-care (01) ==
LOC: PT 08:30
PROVIDERS: Referring Provider Orthopaedic Surgery Sports Medicine; Visit Provider Orthopaedic Surgery Sports Medicine
DX: M25.562 Pain in left knee (principal)
CPT/HCPCS: 97014; 97110; 97162; G0283

== ENCOUNTER → 2023-08-23 | Outpatient (CLI) | payer BC, MEDICAID, SELFPAY ==
[2023-08-23 15:48] LABS: Absolute Lymphocyte Count 1.63 X10^3/uL (0.83-4.51); Absolute Neutrophil Count 4.4 X10^3/uL (2.0-7.7); Basophil# 0.04 X10^3/uL; Basophil% 0.6 % (0-1); Eosinophil# 0.11 X10^3/uL; Eosinophils% 1.7 % (0-5); Hemoglobin 12.9 g/dL (12.0-15.0); Lymphocyte # 1.63 X10^3/ul (0.83-4.51); Lymphocyte % 24.9 % (19-41); Mean Corp Hgb Conc 32.3 g/dL (32-36); Mean Corpuscular Hgb 29.9 pg (27.0-32.0); Mean Corpuscular Volume 92.8 fL (81-99); Mean Platelet Vol. 14.8 fl (6.2-12.0); Monocyte# 0.38 X10^3/uL; Monocyte% 5.8 % (0-10); NRBC Flagged by Analyzer 0 % (0-5); Neutrophil # 4.38 X10^3/uL (2.7-7.7); Neutrophil % 66.8 % (47-70); Platelet Count 143 K/mm3 (150-450); RBC Distribution Width CV 12.4 % (11.6-14.6); RBC Distribution Width SD 42.5 fl (35.1-43.9); Red Blood Count 4.31 M/mm3 (4.2-5.4); White Blood Count 6.6 K/mm3 (4.4-11.0)
[2023-08-23 16:25] LABS: Vitamin D,25 Hydroxy 27.6 ng/mL
[2023-08-23 16:27] LABS: T4 Free Direct 0.93 ng/dL (0.76-1.46); Thyroid Stim Hormone (TSH) 1.06 uIU/mL (0.358-3.74)
[2023-08-23 16:37] LABS: Hemoglobin A1c 4.7 % (3.8-5.6)
== END | disposition home or self-care (01) ==
PROVIDERS: PCP Family Medicine; Referring Provider Obstetrics & Gynecology; Visit Provider Obstetrics & Gynecology
DX: N92.6 Irregular menstruation, unspecified (principal); Z13.21 Encounter for screening for nutritional disorder
CPT/HCPCS: 36415; 82306; 82627; 82670; 83036; 83498; 84402; 84439; 84443; 85025; 82626

== ENCOUNTER → 2024-01-20 | Outpatient (CLI) | payer BC, MEDICAID, SELFPAY ==
[2023-10-13 09:41] LABS: Hematocrit 42.8 % (37-47); Mean Corp Hgb Conc 32.7 g/dL (32-36); Mean Corpuscular Volume 91.8 fL (81-99); Mean Platelet Vol. 13.4 fl (6.2-12.0); Platelet Count 164 K/mm3 (150-450); RBC Distribution Width CV 11.9 % (11.6-14.6); RBC Distribution Width SD 40.1 fl (35.1-43.9); Red Blood Count 4.66 M/mm3 (4.2-5.4); White Blood Count 6.1 K/mm3 (4.4-11.0)
[2023-10-13 10:20] LABS: ALB/GLOB Ratio 1.3 RATIO (0.9-2.4); AST(SGOT) 13 U/L (15-37); Alanine Aminotransfer ALT/SGPT 14 U/L (13-56); Albumin, Serum 4.4 g/dL (3.2-5.0); Alkaline Phosphatase 67 U/L (45-117); Anion Gap 4 (5-15); BUN 9 mg/dL (7-18); BUN/Creat Ratio 11.7 RATIO (10-20); Calcium,Total 9.4 mg/dL (8.5-10.1); Chloride 108 mmol/L (98-107); Creatinine, Serum 0.77 mg/dL (0.55-1.02); EST Glomerular Filtration Rate 91 mL/min (>60); Est Glom Filt Rate - Afr Amer 110 mL/min (>60); Globulin 3.3 g/dL (2.2-4.2); Glucose 105 mg/dL (74-106); Potassium 4.3 mmol/L (3.5-5.1); Protein, Total 7.7 g/dL (6.4-8.2); Sodium Level 139 mmol/L (136-145)
== END | disposition home or self-care (01) ==
PROVIDERS: PCP Family Medicine; Referring Provider Surgery; Visit Provider Surgery
DX: Z01.818 Encounter for other preprocedural examination (principal); Z53.9 Procedure and treatment not carried out, unspecified reason
CPT/HCPCS: 36415; 80053; 85027